=== PATIENT | female | born 1955 | race Caucasian/White ===

== ENCOUNTER 2018-03-25 10:34 | Inpatient (IN) ==
--- NOTE | 2018-03-25 10:40 | Emergency Department Note ---
Disposition Clinical Impression: UTI (urinary tract infection) Qualifiers: Urinary tract infection type: site unspecified Hematuria presence: without hematuria Qualified Code(s): N39.0 - Urinary tract infection, site not specified Hypotension Qualifiers: Hypotension type: unspecified hypotension type Qualified Code(s): I95.9 - Hypotension, unspecified Chest pain Qualifiers: Chest pain type: unspecified Qualified Code(s): R07.9 - Chest pain, unspecified Disposition: Admitted As Inpatient Condition: Good Time of Disposition: 17:24 Chest Pain HPI - General Chief Complaint: ED Chest Pain Stated Complaint: CP X1day Time Seen by Provider: 03/25/18 10:38 Source: patient Mode of arrival: ambulatory Limitations: no limitations Vital Signs Reviewed: Yes Nursing Notes Reviewed: Yes - History of Present Illness HPI Narrative: Patient is a 8-year-old female with past medical history of renal cell carcinoma , hypertension. She presents today due to chest discomfort. She states that this morning, she started having chest pain around 8 AM. Described as aching with radiation to her upper back. No radiation to arm or jaw. No associated nausea, sweating, vomiting, fevers. Unsure if this worsens with exertion. Associated with some shortness of breath but does worsen with exertion. Currently rated as 7 or 8 out of 10. She took baby aspirin 81 mg this morning. Denies receiving any other medication prior to arrival. She was [facility] this morning for follow-up appointment for renal cell carcinoma, she is having chest discomfort during that visit and was sent here for further evaluation. - Related Data Home Medications Medication Instructions Recorded Confirmed Aspirin 81 mg PO DAILY 07/23/16 03/25/18 Buspirone HCl [Buspar] 7.5 mg PO BID 07/23/16 03/25/18 Cetirizine HCl [Zyrtec] 10 mg PO DAILY 07/23/16 03/25/18 Docusate [Colace] 100 mg PO DAILY 07/23/16 03/25/18 Gabapentin [Neurontin] 600 mg PO TID 07/23/16 03/25/18 Metoprolol XL (24 HR) Succ [Toprol 25 mg PO DAILY 07/23/16 03/25/18 Xl] Nitroglycerin [Nitrostat] 0.4 mg SL Q5M PRN 07/23/16 03/25/18 Sertraline [Zoloft] 50 mg PO DAILY 07/23/16 03/25/18 Isosorbide MONOnitrate (24 HR) 60 mg PO BID 03/25/18 03/25/18 [Imdur] Losartan [Cozaar] 25 mg PO DAILY 03/25/18 03/25/18 Previous Rx's Medication Instructions Recorded Atorvastatin Calcium 80 mg PO DAILY #60 tablet 07/27/16 Clopidogrel [Plavix] 75 mg PO DAILY #60 tablet 07/27/16 metFORMIN [Glucophage] 500 mg PO BIDWM #60 tablet 07/27/16 Methocarbamol [Robaxin] 750 mg PO Q8HR PRN #21 tablet 06/05/17 Allergies Allergy/AdvReac Type Severity Reaction Status Date / Time citalopram [From Celexa] Allergy See Verified 03/25/18 09:24 Comments Penicillins Allergy Hives Verified 03/25/18 09:24 codeine AdvReac Nausea Verified 03/25/18 09:24 All systems ED: reviewed and negative except as stated. Constitutional: Denies: fever Cardiovascular: Reports: chest pain Respiratory: Reports: dyspnea Gastrointestinal: Denies: abdominal pain, nausea, vomiting, diarrhea Genitourinary: Denies: urgency, dysuria Integumentary: Denies: rash Neurological: Denies: headache, weakness, numbness, paresthesias Chest Pain PMH - Past Medical History Medical history: Reports: other Surgical history: Reports: cancer surgery, cholecystectomy, hysterectomy, orthopedic, other, other (Cervical spine surgery) Psychiatric history: Reports: no psych history - Social History Smoking Status: Never smoker Alcohol use: Reports: none Drug use: Reports: none Physical Exam - General Limitations: no limitations General appearance: alert, in no apparent distress - Head Head exam: atraumatic, normocephalic, normal inspection - Eye Eye exam: Present: normal appearance, PERRL, EOMI - ENT ENT exam: normal exam, normal oropharynx, mucous membranes moist - Neck Neck exam: Present: normal inspection, full ROM, trachea midline - Chest Chest inspection: Present: normal inspection, symmetric chest wall rise. Absent : tenderness, rash - Respiratory Respiratory exam: Present: normal lung sounds bilaterally - Cardiovascular Cardiovascular exam: Present: regular rate, normal rhythm, normal heart sounds - Abdominal Exam Abdominal exam: Present: soft, Non-Tender. Absent: tenderness, distention, guarding, rebound, rigidity - Extremities Exam Extremities exam: Present: normal inspection, full ROM, pedal edema (Chronic bilateral lower extremity venous stasis. Negative calf tenderness bilaterally.) . Absent: tenderness - Neurological Exam Neurological exam: Present: alert, oriented X3, CN II-XII intact. Absent: motor sensory deficit - Psychiatric Psychiatric exam: Present: normal affect, normal mood - Skin Skin exam: Present: warm, dry, intact, normal color Course Course Narrative: Chest X-Ray 03/25/18 10:43 IMPRESSION: 1. No active pulmonary disease. D/ / Marcio London MD / Marcio London MD Interpreting Provider: Marcio London MD Chest CTA 03/25/18 10:57 IMPRESSION: No acute vascular abnormality is identified. No aortic dissection or aneurysm. Mediastinal and axillary adenopathy. Multiple mediastinal nodes are partially calcified, indicating granulomatous disease. Please see discussion below. Scattered bilateral pulmonary nodules. Follow-up CT is recommended in 3-6 months. Mediastinal and axillary adenopathy may be followed at this time as well. Additional pulmonary management guidelines are inserted below for reference. -------- Fleischner Society guidelines for follow-up and management of incidentally detected pulmonary nodules: Multiple Solid Nodules: Nodule size equals 6-8 mm In a low-risk patient, CT at 3-6 months, then consider CT at 18-24 months. In a high-risk patient, CT at 3-6 months, then CT at 18-24 months. - Low risk patients include individuals with minimal or absent history of smoking and other known risk factors. - High risk patients include individuals with a history or smoking or known risk factors. Radiology 2017 http://pubs.rsna.org/doi/full/10.1148/radiol.[email or web address] D/ / Dennis Gan MD / Dennis Gan MD Interpreting Provider: Dennis Gan MD Vital Signs Temperature 97.5 F L 03/25/18 10:37 Pulse Rate 93 03/25/18 10:37 Respiratory Rate 18 03/25/18 10:37 Blood Pressure 78/51 03/25/18 10:37 O2 Sat by Pulse Oximetry 97 03/25/18 10:37 Temperature 97.5 F L 03/25/18 10:41 Pulse Rate 74 03/25/18 16:53 Respiratory Rate 20 03/25/18 16:53 Blood Pressure 122/59 03/25/18 16:53 O2 Sat by Pulse Oximetry 94 03/25/18 16:53 Oxygen Delivery Oxygen Delivery Nasal Cannula Chest Pain - [facility] Narrative Medical decision making narrative: Patient was hypertensive in the 70s on presentation. She currently is complaining of some lightheadedness but no other focal neurologic deficits. With history of chest pain, shortness of breath, hypertension and is concern for dissection versus ACS versus PE. We will obtain basic blood work, EKG, troponin, CT of the chest for further assessment. Also perform a quick bedside x-ray to assess for any acute processes. 15:05 chest x-ray negative for any acute cardio pulmonary process. Chest CTA shows mediastinal and axillary adenopathy but no other concerns for pneumonia. Patient continues to have increased oxygen demand, requiring 2 L nasal to keep oxygen saturation above 88%. Blood pressures have been improving after fluids gradually from systolic of 70 now to systolic of 100. Patient is still mentating well. No clear signs of any sepsis at this time. Patient just had a CT abdomen and pelvis at the end of January that was negative for any acute intra- abdominal process. No abdominal pain. No concern for any intra-abdominal process at this time. No concern for any skin wounds or cellulitis. I discussed the case with hospitalist, they were not comfortable with blood pressures being soft and not having clear source for hypotension. Requested urinalysis to be back before they admitted the patient. We preemptively started vancomycin and cefepime for any source control. Urinalysis obtained at this time and pending. 17:00 UA back and concerning for UTI, possible source of hypotension. Antibiotics already started. Blood pressure was taken manually and was 100/70. Spoke with Dr. Marquis again. He has accepted the patient at this time for further care. - Medical Records Medical records reviewed: Yes I reviewed the patient's medical records. - Lab Data Lab results reviewed: Yes I reviewed the patient's lab results. Result diagrams: 03/25/18 11:03 03/25/18 11:03 Lab Results 03/25/18 03/25/18 03/25/18 Range/Units 11:03 11:03 11:03 WBC 12.0 H (4.3-11.1) K/mcL RBC 5.19 H (3.82-4.97) M/mcL Hgb 15.6 H (11.5-15.4) g/dL Hct 46.0 H (35.3-44.9) % MCV 88.6 (83.0-100.0) fL MCH 30.1 (28.0-33.3) pg MCHC 33.9 (31.6-35.5) g/dL RDW 13.5 (11.5-14.5) % Plt Count 252 (140-400) K/mcL MPV 11.2 (9.4-12.4) fL Immature Gran % 0.4 (0-4) % Seg Neutrophils % 61.4 % Lymphocytes % 28.6 % Monocytes % 5.6 % Eosinophils % 3.6 % Basophils % 0.4 % Neutrophils # 7.4 (1.6-8.9) K/mcL Lymphocytes # 3.4 (0.6-4.6) K/mcL Monocytes # 0.7 (0.0-1.3) K/mcL Eosinophils # 0.4 (0.0-0.6) K/mcL Basophils # 0.1 (0.0-0.2) K/mcL PT 10.8 (9.4-12.1) Seconds INR 1.0 APTT 30.6 (26.0-36.0) Seconds Sodium 133 L (136-145) mEq/L Potassium 4.7 (3.5-5.1) mEq/L Chloride 100 (98-107) mEq/L Carbon Dioxide 18 L (23-29) mEq/L BUN 25 H (8-23) mg/dL Creatinine 1.13 (0.60-1.20) mg/dL Est GFR ( Amer) 60 (> 60) Est GFR (Non-Af Amer) 49 L (> 60) BUN/Creatinine Ratio 22 (6-26) Glucose 360 H (70-105) mg/dL Calculated Osmolality 295 (280-300) Lactic Acid (0.5-2.2) mmol/L Calcium 9.2 (8.6-10.3) mg/dL Troponin I < 0.03 (< 0.04) ng/mL Urine Color (Yellow) Urine Clarity (Clear) Urine pH (5.0-8.0) pH Units Ur Specific [place] (1.010-1.025) Urine Protein (Neg-Trace) mg/dL Urine Glucose (UA) (Normal) mg/dL Urine Ketones (Negative) mg/dL Urine Blood (Negative) Urine Nitrite (Negative) Urine Bilirubin (Negative) Urine Urobilinogen (Normal) mg/dL Ur Leukocyte Esterase (Negative) Urine Microscopic RBC (0-3) per hpf Urine Microscopic WBC (0-3) per hpf Ur Squamous Epith Cells (None-Few) per lpf Urine Bacteria (None-Few) per hpf Urine Yeast (None Seen) per hpf 03/25/18 03/25/18 03/25/18 Range/Units 11:06 15:14 15:25 WBC (4.3-11.1) K/mcL RBC (3.82-4.97) M/mcL Hgb (11.5-15.4) g/dL Hct (35.3-44.9) % MCV (83.0-100.0) fL MCH (28.0-33.3) pg MCHC (31.6-35.5) g/dL RDW (11.5-14.5) % Plt Count (140-400) K/mcL MPV (9.4-12.4) fL Immature Gran % (0-4) % Seg Neutrophils % % Lymphocytes % % Monocytes % % Eosinophils % % Basophils % % Neutrophils # (1.6-8.9) K/mcL Lymphocytes # (0.6-4.6) K/mcL Monocytes # (0.0-1.3) K/mcL Eosinophils # (0.0-0.6) K/mcL Basophils # (0.0-0.2) K/mcL PT (9.4-12.1) Seconds INR APTT (26.0-36.0) Seconds Sodium (136-145) mEq/L Potassium (3.5-5.1) mEq/L Chloride (98-107) mEq/L Carbon Dioxide (23-29) mEq/L BUN (8-23) mg/dL Creatinine (0.60-1.20) mg/dL Est GFR ( Amer) (> 60) Est GFR (Non-Af Amer) (> 60) BUN/Creatinine Ratio (6-26) Glucose (70-105) mg/dL Calculated Osmolality (280-300) Lactic Acid 4.3 H* 1.7 (0.5-2.2) mmol/L Calcium (8.6-10.3) mg/dL Troponin I (< 0.04) ng/mL Urine Color Yellow (Yellow) Urine Clarity Turbid A (Clear) Urine pH 5.5 (5.0-8.0) pH Units Ur Specific [place] > 1.030 H (1.010-1.025) Urine Protein Trace (Neg-Trace) mg/dL Urine Glucose (UA) >=1000 H (Normal) mg/dL Urine Ketones Negative (Negative) mg/dL Urine Blood Moderate H (Negative) Urine Nitrite Negative (Negative) Urine Bilirubin Negative (Negative) Urine Urobilinogen Normal (Normal) mg/dL Ur Leukocyte Esterase Large H (Negative) Urine Microscopic RBC 0-3 (0-3) per hpf Urine Microscopic WBC TNTC H (0-3) per hpf Ur Squamous Epith Cells Few (None-Few) per lpf Urine Bacteria Few (None-Few) per hpf Urine Yeast Many H (None Seen) per hpf - Radiology Data Radiology results reviewed: Yes I reviewed the patient's radiology results. - EKG Data EKG attestation: Yes I reviewed and interpreted this EKG. EKG results narrative: 03/25/2018 at 10:57. Normal sinus rhythm. Rate 91. OK 143. QRS 60. QTC 380. Mild left axis deviation. No acute ST elevation or depression. T-wave inversion in lead 3. S.B.A.R. - S.B.A.R. Situation: Demographics, MOA Background: Presenting Complaint, Relevant PMH, Meds, & Allergies Assessment: Vital Signs, Course and respsone to treatment, Exam Concerns, Patient/Family Expectation, Pertinant Lab Results Recommendation: Barrier(s) to disposition, Recommendation based on pending studies, treatments, or consults S.B.A.R. Report Given to: Dr. Marquis
--- NOTE | 2018-03-25 10:51 | Emergency Department Note ---
Disposition Clinical Impression: UTI (urinary tract infection), Hypotension, Chest pain Disposition: Admitted As Inpatient Condition: Good General Adult HPI - General Chief complaint: ED Chest Pain Stated complaint: CP X1day Time Seen by Provider: 03/25/18 10:38 - Related Data Home Medications Medication Instructions Recorded Confirmed Aspirin 81 mg PO DAILY 07/23/16 03/25/18 Buspirone HCl [Buspar] 7.5 mg PO BID 07/23/16 03/25/18 Cetirizine HCl [Zyrtec] 10 mg PO DAILY 07/23/16 03/25/18 Docusate [Colace] 100 mg PO DAILY 07/23/16 03/25/18 Gabapentin [Neurontin] 600 mg PO TID 07/23/16 03/25/18 Metoprolol XL (24 HR) Succ [Toprol 25 mg PO DAILY 07/23/16 03/25/18 Xl] Nitroglycerin [Nitrostat] 0.4 mg SL Q5M PRN 07/23/16 03/25/18 Sertraline [Zoloft] 50 mg PO DAILY 07/23/16 03/25/18 Isosorbide MONOnitrate (24 HR) 60 mg PO BID 03/25/18 03/25/18 [Imdur] Losartan [Cozaar] 25 mg PO DAILY 03/25/18 03/25/18 Previous Rx's Medication Instructions Recorded Atorvastatin Calcium 80 mg PO DAILY #60 tablet 07/27/16 Clopidogrel [Plavix] 75 mg PO DAILY #60 tablet 07/27/16 metFORMIN [Glucophage] 500 mg PO BIDWM #60 tablet 07/27/16 Methocarbamol [Robaxin] 750 mg PO Q8HR PRN #21 tablet 06/05/17 Allergies Allergy/AdvReac Type Severity Reaction Status Date / Time citalopram [From Celexa] Allergy See Verified 03/25/18 09:24 Comments Penicillins Allergy Hives Verified 03/25/18 09:24 codeine AdvReac Nausea Verified 03/25/18 09:24 Past Medical History - Past Medical History Medical history: Reports: other Surgical history: Reports: cancer surgery, cholecystectomy, hysterectomy, orthopedic, other, other (Cervical spine surgery) Psychiatric history: Reports: no psych history - Social History Smoking Status: Never smoker Smokeless Tobacco Status: No Alcohol use: Reports: none Drug use: Reports: none Course Vital Signs Temperature 97.5 F L 03/25/18 10:37 Pulse Rate 93 03/25/18 10:37 Respiratory Rate 18 03/25/18 10:37 Blood Pressure 78/51 03/25/18 10:37 O2 Sat by Pulse Oximetry 97 03/25/18 10:37 Temperature 97.5 F L 03/25/18 10:41 Pulse Rate 74 03/25/18 16:53 Respiratory Rate 20 03/25/18 16:53 Blood Pressure 122/59 03/25/18 16:53 O2 Sat by Pulse Oximetry 94 03/25/18 16:53 Oxygen Delivery Oxygen Delivery Nasal Cannula Medical Decision Making - Lab Data Result diagrams: 03/25/18 11:03 03/25/18 11:03 Lab Results 03/25/18 03/25/18 03/25/18 Range/Units 11:03 11:03 11:03 WBC 12.0 H (4.3-11.1) K/mcL RBC 5.19 H (3.82-4.97) M/mcL Hgb 15.6 H (11.5-15.4) g/dL Hct 46.0 H (35.3-44.9) % MCV 88.6 (83.0-100.0) fL MCH 30.1 (28.0-33.3) pg MCHC 33.9 (31.6-35.5) g/dL RDW 13.5 (11.5-14.5) % Plt Count 252 (140-400) K/mcL MPV 11.2 (9.4-12.4) fL Immature Gran % 0.4 (0-4) % Seg Neutrophils % 61.4 % Lymphocytes % 28.6 % Monocytes % 5.6 % Eosinophils % 3.6 % Basophils % 0.4 % Neutrophils # 7.4 (1.6-8.9) K/mcL Lymphocytes # 3.4 (0.6-4.6) K/mcL Monocytes # 0.7 (0.0-1.3) K/mcL Eosinophils # 0.4 (0.0-0.6) K/mcL Basophils # 0.1 (0.0-0.2) K/mcL PT 10.8 (9.4-12.1) Seconds INR 1.0 APTT 30.6 (26.0-36.0) Seconds Sodium 133 L (136-145) mEq/L Potassium 4.7 (3.5-5.1) mEq/L Chloride 100 (98-107) mEq/L Carbon Dioxide 18 L (23-29) mEq/L BUN 25 H (8-23) mg/dL Creatinine 1.13 (0.60-1.20) mg/dL Est GFR ( Amer) 60 (> 60) Est GFR (Non-Af Amer) 49 L (> 60) BUN/Creatinine Ratio 22 (6-26) Glucose 360 H (70-105) mg/dL Calculated Osmolality 295 (280-300) Lactic Acid (0.5-2.2) mmol/L Calcium 9.2 (8.6-10.3) mg/dL Troponin I < 0.03 (< 0.04) ng/mL Urine Color (Yellow) Urine Clarity (Clear) Urine pH (5.0-8.0) pH Units Ur Specific [place] (1.010-1.025) Urine Protein (Neg-Trace) mg/dL Urine Glucose (UA) (Normal) mg/dL Urine Ketones (Negative) mg/dL Urine Blood (Negative) Urine Nitrite (Negative) Urine Bilirubin (Negative) Urine Urobilinogen (Normal) mg/dL Ur Leukocyte Esterase (Negative) Urine Microscopic RBC (0-3) per hpf Urine Microscopic WBC (0-3) per hpf Ur Squamous Epith Cells (None-Few) per lpf Urine Bacteria (None-Few) per hpf Urine Yeast (None Seen) per hpf 03/25/18 03/25/18 03/25/18 Range/Units 11:06 15:14 15:25 WBC (4.3-11.1) K/mcL RBC (3.82-4.97) M/mcL Hgb (11.5-15.4) g/dL Hct (35.3-44.9) % MCV (83.0-100.0) fL MCH (28.0-33.3) pg MCHC (31.6-35.5) g/dL RDW (11.5-14.5) % Plt Count (140-400) K/mcL MPV (9.4-12.4) fL Immature Gran % (0-4) % Seg Neutrophils % % Lymphocytes % % Monocytes % % Eosinophils % % Basophils % % Neutrophils # (1.6-8.9) K/mcL Lymphocytes # (0.6-4.6) K/mcL Monocytes # (0.0-1.3) K/mcL Eosinophils # (0.0-0.6) K/mcL Basophils # (0.0-0.2) K/mcL PT (9.4-12.1) Seconds INR APTT (26.0-36.0) Seconds Sodium (136-145) mEq/L Potassium (3.5-5.1) mEq/L Chloride (98-107) mEq/L Carbon Dioxide (23-29) mEq/L BUN (8-23) mg/dL Creatinine (0.60-1.20) mg/dL Est GFR ( Amer) (> 60) Est GFR (Non-Af Amer) (> 60) BUN/Creatinine Ratio (6-26) Glucose (70-105) mg/dL Calculated Osmolality (280-300) Lactic Acid 4.3 H* 1.7 (0.5-2.2) mmol/L Calcium (8.6-10.3) mg/dL Troponin I (< 0.04) ng/mL Urine Color Yellow (Yellow) Urine Clarity Turbid A (Clear) Urine pH 5.5 (5.0-8.0) pH Units Ur Specific [place] > 1.030 H (1.010-1.025) Urine Protein Trace (Neg-Trace) mg/dL Urine Glucose (UA) >=1000 H (Normal) mg/dL Urine Ketones Negative (Negative) mg/dL Urine Blood Moderate H (Negative) Urine Nitrite Negative (Negative) Urine Bilirubin Negative (Negative) Urine Urobilinogen Normal (Normal) mg/dL Ur Leukocyte Esterase Large H (Negative) Urine Microscopic RBC 0-3 (0-3) per hpf Urine Microscopic WBC TNTC H (0-3) per hpf Ur Squamous Epith Cells Few (None-Few) per lpf Urine Bacteria Few (None-Few) per hpf Urine Yeast Many H (None Seen) per hpf Critical Care Time Critical Care Time: Yes Total Critical Care Time: 30 Attestation: 30 minutes of critical care time was spent with this very ill pt with hypotension, fluid boluses, testing including elevated lactate level and to numerous to count white blood cells in the urine. Attestation Statement - Attestation Attestation: I examined this patient and my medical decision-making was reviewed with the DENTAL NURSE/PA/Advanced Practice Nurse/Resident Physician. I agree with the documented findings, disposition and treatment plan as described except to the extent set forth below. Patient has a history of remote renal cell carcinoma 2003 without evidence of recurrence and does follow with oncology and presents today with lightheadedness and chest discomfort and current blood pressure is systolic 78 and this will be rechecked. The patient is bright and alert and in no distress , color is good, EKG will be done as well as chest x-ray and blood work and IV fluids. Results pending. [id number]
[2018-03-25] MEDS ORDERED: 0.9 % Sodium Chloride 1,000 ML IVC ONE ×2 (10:57→14:59)
[2018-03-25] MEDS ORDERED: Isovue-370 500 ML INFUS..BTL IV ONE (10:57)
[2018-03-25 11:37] LABS: Basophils # 0.1 K/mcL (0.0-0.2); Basophils % 0.4 %; Eosinophils # 0.4 K/mcL (0.0-0.6); Eosinophils % 3.6 %; Hemoglobin 15.6 g/dL (11.5-15.4); Immature Granulocytes % 0.4 % (0-4); Lymphocytes # 3.4 K/mcL (0.6-4.6); Lymphocytes % 28.6 %; Mean Corpuscular HGB Conc 33.9 g/dL (31.6-35.5); Mean Corpuscular Hemoglobin 30.1 pg (28.0-33.3); Mean Corpuscular Volume 88.6 fL (83.0-100.0); Mean Platelet Volume 11.2 fL (9.4-12.4); Monocytes # 0.7 K/mcL (0.0-1.3); Monocytes % 5.6 %; Neutrophils # 7.4 K/mcL (1.6-8.9); Platelet Count 252 K/mcL (140-400); Red Blood Count 5.19 M/mcL (3.82-4.97); Red Cell Distribution Width 13.5 % (11.5-14.5); Segmented Neutrophils % 61.4 %
[2018-03-25 11:47] LABS: Prothrombin Time 10.8 Seconds (9.4-12.1); Troponin I < 0.03 ng/mL (< 0.04)
[2018-03-25 11:50] LABS: Activated Partial Thrombo Time 30.6 Seconds (26.0-36.0)
[2018-03-25] MEDS: 0.9 % Sodium Chloride 1,000 ML IVC SCH ×2 (12:15→18:45)
[2018-03-25 12:19] LABS: BUN/Creatinine Ratio 22 (6-26); Blood Urea Nitrogen 25 mg/dL (8-23); Calcium 9.2 mg/dL (8.6-10.3); Carbon Dioxide 18 mEq/L (23-29); Chloride 100 mEq/L (98-107); Glucose 360 mg/dL (70-105); Osmolality,Calculated 295 (280-300); Potassium 4.7 mEq/L (3.5-5.1); Sodium 133 mEq/L (136-145); eGFR For Non-African Americans 49 (> 60)
[2018-03-25] MEDS ORDERED: Cefepime HCl 1,000 MG in 0.9 % Sodium Chloride Mini Bag 100 ML IVPB ONE (14:54)
[2018-03-25 15:44] LABS: Bilirubin,Urine Negative (Negative); Blood,Urine Moderate (Negative); Clarity,Urine Turbid (Clear); Color,Urine Yellow (Yellow); Glucose,Urine (UA) >=1000 mg/dL (Normal); Ketones,Urine Negative (Negative); Leukocyte Esterase,Urine Large (Negative); Nitrite,Urine Negative (Negative); PH,Urine 5.5 pH Units (5.0-8.0); Protein,Urine Trace mg/dL (Neg-Trace); Specific Gravity,Urine > 1.030 (1.010-1.025); Urobilinogen,Urine Normal (Normal)
[2018-03-25 16:26] LABS: Squamous Epithelial Cell,Urine Few per lpf (None-Few)
[2018-03-25 16:27] LABS: WBC,Urine TNTC per hpf (0-3); Yeast,Urine Many per hpf (None Seen)
[2018-03-25 16:28] LABS: Bacteria,Urine Few per hpf (None-Few); RBC,Urine 0-3 per hpf (0-3)
[2018-03-25] MEDS ORDERED: Naloxone 0.4 MG/ML INJ IVP PRN (17:34)
[2018-03-25] MEDS ORDERED: *HR* Dextrose 50 % in Water (Syg) 50 ML SYRINGE IVP PRN (17:34)
[2018-03-25] MEDS ORDERED: D5% in Water 1,000 ML IVC PRN (17:34)
[2018-03-25] MEDS ORDERED: Dextrose Gel 15 GM/37.5 ML TUBE PO PRN ×2 (17:34)
[2018-03-25] MEDS ORDERED: Nitroglycerin 0.4 MG TAB.SUBL SL PRN (17:43)
--- NOTE | 2018-03-25 17:51 | Internal Med History&Physical ---
Date of Encounter: 03/25/18 Time of Encounter: 17:00 Internal Medicine - H&P: HPI Chief complaint: chest pain, weakness, urinary frequency History of present illness: Ms. Senior is a 62 year old female with past medical history of RCC status post resection, diabetes, CAD, hypertension, presented to the ED with vague history of chest discomfort for a few days. Couldn't really describe the nature but "funny sensation", non-radiating, no aggravating/relieving factors. She has felt weak for the last few days but denies fever/chills, N/V, or abdominal pain. Upon further questioning, she did endorse urinary frequency although did not have any dysuria. Associated with R flank discomfort. Denies any joint pain or rash. In the ED, she was afebrile but hypotensive at 78/51. Improved to 122/59 after fluid boluses. Initial labs revealed leukocytosis of 12, lactic acid of 4.3, and creatinine of 1.13 (baseline 0.8). Urinalysis was done and showed large amount of leukocyte esterase. Chest CTA was unremarkable except for mediastinal and axillary adenopathy. She was given Vanco and cefepime in the ER and admitted for further management Past Med Surg Social Fam HX - Past Medical History Attestation: Yes The following information was validated with the patient. Medical history: other Additional medical history: Renal Cell Carcinoma. Kidney Cancer-2003 Psychiatric history: no psych history - Past Surgical History Surgical History: cancer surgery, cholecystectomy, hysterectomy, orthopedic, other, other (Cervical spine surgery) Additional surgical history: Neck Surgery - Social History Smoking Status: Never smoker Smokeless Tobacco Status: No Alcohol use: none Drug use: none - Family History Mother Living Status: Hx Family Cancer: Yes (colon) Internal Medicine - H&P: Meds Aspirin 81 mg PO DAILY 07/23/16 [History] Buspirone HCl [Buspar] 7.5 mg PO BID 07/23/16 [History] Cetirizine HCl [Zyrtec] 10 mg PO DAILY 07/23/16 [History] Docusate [Colace] 100 mg PO DAILY 07/23/16 [History] Gabapentin [Neurontin] 600 mg PO TID 07/23/16 [History] Metoprolol XL (24 HR) Succ [Toprol Xl] 25 mg PO DAILY 07/23/16 [History] Nitroglycerin [Nitrostat] 0.4 mg SL Q5M PRN 07/23/16 [History] Sertraline [Zoloft] 50 mg PO DAILY 07/23/16 [History] Atorvastatin Calcium 80 mg PO DAILY #60 tablet 07/27/16 [Rx] Clopidogrel [Plavix] 75 mg PO DAILY #60 tablet 07/27/16 [Rx] metFORMIN [Glucophage] 500 mg PO BIDWM #60 tablet 07/27/16 [Rx] Methocarbamol [Robaxin] 750 mg PO Q8HR PRN #21 tablet 06/05/17 [Rx] Isosorbide MONOnitrate (24 HR) [Imdur] 60 mg PO BID 03/25/18 [History] Losartan [Cozaar] 25 mg PO DAILY 03/25/18 [History] 3 Allergy/AdvReac Type Severity Reaction Status Date / Time citalopram [From Celexa] Allergy See Verified 03/25/18 09:24 Comments Penicillins Allergy Hives Verified 03/25/18 09:24 codeine AdvReac Nausea Verified 03/25/18 09:24 All Systems PM: A 10-system review of systems was performed and is negative for pertinent findings except as documented above in the HPI. - Constitutional Vitals: Temp Pulse Resp BP Pulse Ox 97.5 F L 74 20 122/59 94 03/25/18 10:41 03/25/18 16:53 03/25/18 16:53 03/25/18 16:53 03/25/18 16:53 Exam: General: Alert and oriented, not in distress HEENT:EOM, pupils equal, round, and reactive. Cardiovascular:Normal S1 & S2, no murmurs or gallops. No JVD. Pulse regular. Lungs:Normal breath sounds, no wheezes or crackles. Abdomen:Soft, non-tender, no rigidity. Mild R CVA tenderness Extremities:No deformity, no edema or tenderness, no joint swelling. Neurological:Normal cognition and motor skills. Skin:Normal color, no rash, no lesions. Pulses:Carotid and radial pulses normal +2. Rest of the physical exam is non-contributory Internal Med - H&P Results - Labs CBC & Chem 7: 03/25/18 11:03 07/27/18 11:03 - Assessment and plan (1) Severe sepsis Current Visit: Yes Status: Acute Assessment and plan: Secondary to probably pyelonephritis Urinalysis is positive for leukocyte esterase and patient has right-sided CVA tenderness. Leukocytosis of 12 and lactic acid of 4.3 which normalized with IV fluid. Also has PRINCE given IV VAnc/cefepime in the ED, will continue Rocephin Urine Culture pending, ordered blood cultures x [address] scan as it will not change her management and patient is also improving on current management. monitor BP closely (2) Pyelonephritis Current Visit: Yes Status: Acute Assessment and plan: As above, urine culture pending. Switch antibiotics to Rocephin. (3) Diabetes mellitus Current Visit: No Status: Chronic Assessment and plan: Blood glucose 360 on presentation, on metformin at home We will cover with high-dose sliding scale. Qualifiers: Diabetes mellitus type: type 2 Diabetes mellitus detention insulin use: with detention use Diabetes mellitus complication status: with circulatory complication Diabetes mellitus complication detail: with other circulatory complications Qualified Code(s): E11.59 - Type 2 diabetes mellitus with other circulatory complications; Z79.4 - buttermaker continuous churn (current) use of insulin (4) CAD (coronary artery disease) Current Visit: No Status: Chronic Assessment and plan: Episodes of chest pain prior to presentation, troponin is negative. Could be due to poor perfusion secondary to hypotension with sepsis. trend troponin holf off on bb, ARB, imdur for borderline BP Qualifiers: Coronary Disease-Associated Artery/Lesion type: [place] artery [place] vs. transplanted heart: [place] heart Associated angina: without angina Qualified Code(s): I25.10 - Atherosclerotic heart disease of [place] coronary artery without angina pectoris (5) Chest pain Current Visit: Yes Status: Acute Assessment and plan: As above, trend troponin Qualifiers: Chest pain type: unspecified Qualified Code(s): R07.9 - Chest pain, unspecified (6) DVT prophylaxis Current Visit: Yes Status: Acute Assessment and plan: Subcutaneous heparin. - Time Spent With Patient Total time spent is greater than 50% in coordination of care (as documented) at patient's floor/unit and/or counseling patient:
[2018-03-25] MEDS: Gabapentin 300 MG CAPSULE PO SCH (19:25)
[2018-03-26] MEDS: Insulin LISPRO 300 UNITS/3 ML VIAL SQ SCH ×4 (03:01→16:47)
[2018-03-26] MEDS: *HR* Heparin 5,000 UNIT/ML VIAL SQ SCH ×3 (04:08→13:58)
[2018-03-26] MEDS: 0.9 % Sodium Chloride 1,000 ML IVC SCH ×2 (04:09→04:14)
[2018-03-26] MEDS: cefTRIAXone 2,000 MG in Water for inj. (sterile) 20 ML 20 ML IVP SCH (04:10)
[2018-03-26 04:51] LABS: Basophils % 0.3 %; Eosinophils # 0.5 K/mcL (0.0-0.6); Eosinophils % 5.1 %; Hematocrit 43.4 % (35.3-44.9); Hemoglobin 14.7 g/dL (11.5-15.4); Immature Granulocytes % 0.4 % (0-4); Lymphocytes # 2.6 K/mcL (0.6-4.6); Lymphocytes % 27.8 %; Mean Corpuscular HGB Conc 33.9 g/dL (31.6-35.5); Mean Corpuscular Hemoglobin 30.1 pg (28.0-33.3); Mean Corpuscular Volume 88.8 fL (83.0-100.0); Mean Platelet Volume 12.1 fL (9.4-12.4); Monocytes # 0.5 K/mcL (0.0-1.3); Monocytes % 5.7 %; Neutrophils # 5.6 K/mcL (1.6-8.9); Platelet Count 165 K/mcL (140-400); Red Blood Count 4.89 M/mcL (3.82-4.97); Red Cell Distribution Width 13.6 % (11.5-14.5); Segmented Neutrophils % 60.7 %
[2018-03-26 05:07] LABS: BUN/Creatinine Ratio 26 (6-26); Blood Urea Nitrogen 17 mg/dL (8-23); Calcium 8.5 mg/dL (8.6-10.3); Carbon Dioxide 21 mEq/L (23-29); Chloride 106 mEq/L (98-107); Glucose 324 mg/dL (70-105); Magnesium 1.3 mg/dL (1.6-2.6); Osmolality,Calculated 298 (280-300); Sodium 137 mEq/L (136-145); eGFR For Non-African Americans > 60 (> 60)
[2018-03-26] MEDS: Gabapentin 300 MG CAPSULE PO SCH ×3 (08:58→19:48)
[2018-03-26] MEDS: Aspirin 81 MG TAB.CHEW PO SCH (08:58)
[2018-03-26] MEDS: Loratadine 10 MG TABLET PO SCH (08:59)
[2018-03-26] MEDS: Insulin DETEMIR 100 UNIT/ML X5UNITS SQ SCH ×2 (08:59→19:48)
--- NOTE | 2018-03-26 16:28 | Internal Med Progress Note ---
Date of Encounter: 03/26/18 Time of Encounter: 08:45 - Assessment and plan (1) Chest pain Current Visit: Yes Status: Acute Assessment and plan: Resolved. Unclear etiology. EKG and chest x-ray unremarkable. Serial troponins are negative. Continue aspirin, Plavix, statin. Continue telemetry monitoring. Check echocardiogram. CT angiogram of chest showed no PE, aortic dissection, showed mediastinal and axillary adenopathy, bilateral pulmonary nodules. Patient needs outpatient follow-up. Patient was noted to have hypotension and lactic acidosis at admission, that resolved with IV hydration. Home antihypertensives are currently on hold. Qualifiers: Chest pain type: unspecified Qualified Code(s): R07.9 - Chest pain, unspecified (2) Pyelonephritis Current Visit: Yes Status: Suspected Assessment and plan: Urinalysis shows moderate blood, large leukocyte esterase, too numerous to count WBC, many yeast. Follow-up blood and urine cultures. Continue IV Rocephin. (3) Diabetes mellitus Current Visit: Yes Status: Chronic Assessment and plan: Blood sugars noted to be elevated. Continue sliding scale insulin, start basal insulin. Accu-Chek blood glucose monitoring. Diabetic diet. Check hemoglobin A1c. 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 transplanted heart: [place] heart Associated angina: without angina Qualified Code(s): I25.10 - Atherosclerotic heart disease of [place] coronary artery without angina pectoris (5) DVT prophylaxis Current Visit: Yes Status: Acute (6) Renal cell carcinoma Current Visit: Yes Status: Chronic Assessment and plan: Follows with oncology as outpatient. has right renal cell carcinoma status post partial nephrectomy in 2003. Qualifiers: Laterality: unspecified laterality Qualified Code(s): C64.9 - Malignant neoplasm of unspecified kidney, except renal pelvis (7) Essential hypertension Current Visit: Yes Status: Chronic Assessment and plan: Blood pressure improving. Continue to hold beta niru, ARB, nitrate. (8) CVA (cerebral vascular accident) Current Visit: Yes Status: Chronic Assessment and plan: Reports intermittent vertigo and issues with balance due to previous stroke. Physical and occupational therapy evaluation. Continue aspirin and statin. 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 Improving right flank pain and chest pain. Blood pressure improved. No fever, chills, shortness of breath, nausea. Denies burning micturition, hematuria and pyuria. - Constitutional Vitals: Temp Pulse Resp BP Pulse Ox 98.4 F 82 20 124/89 100 03/26/18 16:00 03/26/18 16:00 03/26/18 16:00 03/26/18 16:00 03/26/18 16:00 General appearance: Present: A&O X 3, morbidly obese, answers questions appropriately - Respiratory Respiratory exam: Present: CTAB. Absent: accessory muscle use, rales, rhonchi, wheezes - Cardiovascular Cardiovascular exam: Present: RRR, +S1, +S2. Absent: diastolic murmur, gallop, rubs, systolic murmur - GI/Abdominal GI/Abdominal exam: Present: normal bowel sounds, soft (obese), no peritoneal signs. Absent: distended, tenderness - Extremities Exam Extremities exam: Present: warm, radial pulses palpable and symmetrical. Absent : calf tenderness, cyanotic, pedal edema Additional comments: B/L legs with chronic healed wounds - Back Exam Back exam: Present: CVA tenderness (R) - Neurological Exam Neurological exam: Present: CN II-XII intact, oriented X3, no focal deficits. Absent: pronater drift, facial droop, speech deficit Internal Medicine: Result - Labs CBC & Chem 7: 03/26/18 04:02 03/26/18 04:02 Labs: Short CBC 03/26/18 Range/Units 04:02 WBC 9.3 (4.3-11.1) K/mcL Hgb 14.7 (11.5-15.4) g/dL Hct 43.4 (35.3-44.9) % Plt Count 165 (140-400) K/mcL Neutrophils # 5.6 (1.6-8.9) K/mcL BMP 03/26/18 04:02 Sodium 137 Potassium 5.0 Chloride 106 Carbon Dioxide 21 L BUN 17 Creatinine 0.65 Glucose 324 H Calcium 8.5 L Cardiac Enzymes 03/25/18 Range/Units 18:58 Troponin I < 0.03 (< 0.04) ng/mL - ABG Interpretation ABG results: PT/INR, D-dimer PT 10.8 Seconds (9.4-12.1) 03/25/18 11:03 Consult Discharge Plan - Plan Referrals: Calli Chapa, CATH LAB RADIOLOGICAL TECHNOLOGIST [Primary Care Provider] -
[2018-03-26] MEDS: Methocarbamol 750 MG TABLET PO PRN (19:48)
--- NOTE | 2018-03-26 21:04 | Electrocardiograph Report ---
[place] DNP [employer] Test Date: 2018-03-25 Pat Name: Shamika Senior Department: 103 Room: 2N06 Gender: F Supervisor [facility]: : 1955 Requested By: Dano Barrett Order Number: [id number] Reading MD: Hector Bagley Measurements Intervals [place] Rate: 91 P: 2 [place]: 143 QRS: -6 QRSD: 68 T: 12 QT: 332 QTc: 380 Interpretive Statements SINUS RHYTHM Electronically Signed On 03-26-2018 21:02:41 EDT by Hector Bagley
[2018-03-27] MEDS: Insulin LISPRO 300 UNITS/3 ML VIAL SQ SCH ×7 (01:42→21:24)
[2018-03-27] MEDS: *HR* Heparin 5,000 UNIT/ML VIAL SQ SCH ×3 (01:48→12:39)
[2018-03-27 03:10] LABS: Basophils % 0.3 %; Eosinophils # 0.4 K/mcL (0.0-0.6); Hematocrit 40.9 % (35.3-44.9); Immature Granulocytes % 0.3 % (0-4); Lymphocytes # 2.6 K/mcL (0.6-4.6); Lymphocytes % 39.2 %; Mean Corpuscular HGB Conc 34.2 g/dL (31.6-35.5); Mean Corpuscular Hemoglobin 30.2 pg (28.0-33.3); Mean Corpuscular Volume 88.3 fL (83.0-100.0); Mean Platelet Volume 11.1 fL (9.4-12.4); Monocytes # 0.5 K/mcL (0.0-1.3); Neutrophils # 3.1 K/mcL (1.6-8.9); Platelet Count 175 K/mcL (140-400); Red Blood Count 4.63 M/mcL (3.82-4.97); Red Cell Distribution Width 13.3 % (11.5-14.5); Segmented Neutrophils % 47.2 %
[2018-03-27 03:33] LABS: BUN/Creatinine Ratio 19 (6-26); Blood Urea Nitrogen 16 mg/dL (8-23); Carbon Dioxide 24 mEq/L (23-29); Chloride 106 mEq/L (98-107); Glucose 313 mg/dL (70-105); Magnesium 1.5 mg/dL (1.6-2.6); Osmolality,Calculated 293 (280-300); Potassium 4.3 mEq/L (3.5-5.1); Sodium 135 mEq/L (136-145); eGFR For Non-African Americans > 60 (> 60)
[2018-03-27] MEDS: cefTRIAXone 2,000 MG in Water for inj. (sterile) 20 ML 20 ML IVP SCH (03:55)
[2018-03-27 06:41] LABS: Estimated Average Glucose 364 mg/dl; Hemoglobin A1C 14.3 %
[2018-03-27] MEDS: Loratadine 10 MG TABLET PO SCH (07:49)
[2018-03-27] MEDS: Gabapentin 300 MG CAPSULE PO SCH ×3 (07:49→21:05)
[2018-03-27] MEDS: Aspirin 81 MG TAB.CHEW PO SCH (07:49)
[2018-03-27] MEDS: Insulin DETEMIR 100 UNIT/ML X5UNITS SQ SCH ×4 (07:51→21:06)
[2018-03-27] MEDS: Methocarbamol 750 MG TABLET PO PRN ×2 (08:06→21:08)
[2018-03-27] MEDS: Metoprolol XL (24 HR) Succ 25 MG TAB.ER.24H PO SCH (09:09)
--- NOTE | 2018-03-27 15:39 | Internal Med Progress Note ---
Date of Encounter: 03/27/18 Time of Encounter: 15:36 - Assessment and plan (1) Chest pain Current Visit: Yes Status: Acute Assessment and plan: Resolved. Unclear etiology. EKG and chest x-ray unremarkable. Serial troponins are negative. Continue aspirin, Plavix, statin. Continue telemetry monitoring. Echocardiogram shows preserved EF, moderate LV diastolic dysfunction, mild MR/TR/WI; CT angiogram of chest showed no PE, aortic dissection, showed mediastinal and axillary adenopathy, bilateral pulmonary nodules. Patient needs outpatient follow-up. Patient was noted to have hypotension and lactic acidosis at admission, that resolved with IV hydration. Home antihypertensives will be resumed. Qualifiers: Chest pain type: unspecified Qualified Code(s): R07.9 - Chest pain, unspecified (2) Pyelonephritis Current Visit: Yes Status: Suspected Assessment and plan: Urinalysis shows moderate blood, large leukocyte esterase, too numerous to count WBC, many yeast. Preliminary blood cultures negative, urine culture is still pending. Continue IV Rocephin. Patient had hematuria yesterday, improving ; (3) Diabetes mellitus Current Visit: Yes Status: Chronic Assessment and plan: Blood sugars noted to be elevated. HbA1C uncontrolled at 14.3%; patient states she has no insurance and cannot afford insulin; to d/w returned case inspector; Continue sliding scale insulin, increase basal insulin and add nutritional insulin. Accu -Chek blood glucose monitoring. Diabetic diet. Qualifiers: Diabetes mellitus type: type 2 Diabetes mellitus termite control technician insulin use: with termite control technician use Diabetes mellitus complication status: with circulatory complication Diabetes mellitus complication detail: with other circulatory complications Qualified Code(s): E11.59 - Type 2 diabetes mellitus with other circulatory complications; Z79.4 - intermodal dispatcher (current) use of insulin (4) CAD (coronary artery disease) Current Visit: Yes Status: Chronic Qualifiers: Coronary Disease-Associated Artery/Lesion type: [place] artery [place] vs. transplanted heart: [place] heart Associated angina: without angina Qualified Code(s): I25.10 - Atherosclerotic heart disease of [place] coronary artery without angina pectoris (5) DVT prophylaxis Current Visit: Yes Status: Acute (6) Renal cell carcinoma Current Visit: Yes Status: Chronic Assessment and plan: Follows with oncology as outpatient. has right renal cell carcinoma status post partial nephrectomy in 2003. Qualifiers: Laterality: unspecified laterality Qualified Code(s): C64.9 - Malignant neoplasm of unspecified kidney, except renal pelvis (7) Essential hypertension Current Visit: Yes Status: Chronic Assessment and plan: Blood pressure is now increasing; will resume beta niru and ARB; if continues to be high, may resume nitrate tomorrow; (8) CVA (cerebral vascular accident) Current Visit: Yes Status: Chronic Assessment and plan: Reports intermittent vertigo and issues with balance due to previous stroke. Physical and occupational therapy evaluation noted- stable, no needs at discharge. Continue aspirin and statin. 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 (9) Morbid obesity with BMI of 50.0-59.9, adult Current Visit: Yes Status: Chronic - Time Spent With Patient Total time spent is greater than 50% in coordination of care (as documented) at patient's floor/unit and/or counseling patient: - Subjective Interval history: Feels better; denies chest pain, dyspnea; improving hematuria; reports calf pain in left leg, no swelling/redness; no fever/chills; - Constitutional Vitals: Temp Pulse Resp BP Pulse Ox 97.7 F 79 18 145/74 100 03/27/18 11:21 03/27/18 11:21 03/27/18 11:21 03/27/18 11:21 03/27/18 11:21 General appearance: Present: A&O X 3, morbidly obese, answers questions appropriately - Respiratory Respiratory exam: Present: CTAB. Absent: accessory muscle use, rales, rhonchi, wheezes - Cardiovascular Cardiovascular exam: Present: RRR, +S1, +S2. Absent: diastolic murmur, gallop, rubs, systolic murmur - GI/Abdominal GI/Abdominal exam: Present: normal bowel sounds, soft (obese), no peritoneal signs. Absent: distended, tenderness - Extremities Exam Extremities exam: Present: full ROM, pedal edema (trace with chronic discoloration and healed leg wounds), warm, radial pulses palpable and symmetrical. Absent: calf tenderness, cyanotic - Neurological Exam Neurological exam: Present: CN II-XII intact, oriented X3, no focal deficits. Absent: pronater drift, facial droop, speech deficit Internal Medicine: Result - Labs CBC & Chem 7: 03/27/18 02:39 03/27/18 02:39 Labs: Short CBC 03/27/18 Range/Units 02:39 WBC 6.5 (4.3-11.1) K/mcL Hgb 14.0 (11.5-15.4) g/dL Hct 40.9 (35.3-44.9) % Plt Count 175 (140-400) K/mcL Neutrophils # 3.1 (1.6-8.9) K/mcL BMP 03/27/18 02:39 Sodium 135 L Potassium 4.3 Chloride 106 Carbon Dioxide 24 BUN 16 Creatinine 0.84 Glucose 313 H Calcium 9.0 - ABG Interpretation ABG results: PT/INR, D-dimer PT 10.8 Seconds (9.4-12.1) 03/25/18 11:03 - Impressions Impressions Echocardiogram 03/27/18 09:48 Impressions: LVEF 60-65%. Moderate left ventricular diastolic dysfunction. Normal right ventricular structure and function. Mild mitral regurgitation. Mild tricuspid regurgitation. Mild pulmonic regurgitation. No pulmonary hypertension. Left Ventricular Wall Motion: Rest Echo Findings All wall segments showed normal motion. Findings: Study Quality * Technically adequate exam. ECG Findings * Normal sinus rhythm. Left Ventricle * LVEF 60-65%. * Normal LV chamber size, wall thickness and function. * Moderate left ventricular diastolic dysfunction. Right Ventricle * Normal right ventricular structure and function. Left Atrium * Mildly dilated left atrium. Right Atrium * Normal right atrial size. Mitral Valve * Normal mitral valve structure. * No mitral stenosis. * Mild mitral regurgitation. Aortic Valve * No aortic regurgitation. * Aortic valve not well visualized. * No aortic stenosis. Tricuspid Valve * Tricuspid valve not well visualized. * Mild tricuspid regurgitation. * Estimated RA pressure is 3 mmHg. * Estimated RVSP is 23 mmHg. * No pulmonary hypertension. Pulmonic Valve * Pulmonic valve is not well visualized. * No pulmonic stenosis. * Mild pulmonic regurgitation. Pulmonary Artery * Pulmonary artery not well visualized. Aorta * Normally sized aortic root. Pericardium * There is no pericardial effusion present. Interatrial Septum * No evidence of PFO by color Doppler. IVC * Normal IVC dimensions and inspiratory collapse. - VTE Documentation of Mechanical Device: Intermittent pneumatic compression device Consult Discharge Plan - Plan Referrals: Calli Chapa, ASSEMBLER W[employer]ATE [Primary Care Provider] -
[2018-03-27] MEDS: Nystatin POWDER 30 GM BOTTLE TP SCH (21:04)
[2018-03-27 22:21] LABS: Basophils % 0.4 %; Eosinophils # 0.4 K/mcL (0.0-0.6); Eosinophils % 4.4 %; Hematocrit 46.2 % (35.3-44.9); Hemoglobin 15.8 g/dL (11.5-15.4); Immature Granulocytes % 0.3 % (0-4); Lymphocytes # 3.1 K/mcL (0.6-4.6); Lymphocytes % 32.9 %; Mean Corpuscular HGB Conc 34.2 g/dL (31.6-35.5); Mean Corpuscular Hemoglobin 30.2 pg (28.0-33.3); Mean Corpuscular Volume 88.3 fL (83.0-100.0); Mean Platelet Volume 10.9 fL (9.4-12.4); Monocytes # 0.7 K/mcL (0.0-1.3); Monocytes % 7.1 %; Neutrophils # 5.2 K/mcL (1.6-8.9); Platelet Count 210 K/mcL (140-400); Red Blood Count 5.23 M/mcL (3.82-4.97); Red Cell Distribution Width 13.3 % (11.5-14.5); Segmented Neutrophils % 54.9 %
[2018-03-28] MEDS: cefTRIAXone 2,000 MG in Water for inj. (sterile) 20 ML 20 ML IVP SCH (04:05)
[2018-03-28] MEDS: *HR* Heparin 5,000 UNIT/ML VIAL SQ SCH ×4 (04:11→15:46)
[2018-03-28 05:16] LABS: BUN/Creatinine Ratio 26 (6-26); Blood Urea Nitrogen 15 mg/dL (8-23); Carbon Dioxide 25 mEq/L (23-29); Chloride 105 mEq/L (98-107); Glucose 295 mg/dL (70-105); Magnesium 1.4 mg/dL (1.6-2.6); Osmolality,Calculated 294 (280-300); Potassium 4.2 mEq/L (3.5-5.1); Sodium 136 mEq/L (136-145); eGFR For Non-African Americans > 60 (> 60)
[2018-03-28] MEDS: Aspirin 81 MG TAB.CHEW PO SCH (08:56)
[2018-03-28] MEDS: Loratadine 10 MG TABLET PO SCH (08:57)
[2018-03-28] MEDS: Metoprolol XL (24 HR) Succ 25 MG TAB.ER.24H PO SCH (08:57)
[2018-03-28] MEDS: Gabapentin 300 MG CAPSULE PO SCH ×3 (08:57→22:03)
[2018-03-28] MEDS: Nystatin POWDER 30 GM BOTTLE TP SCH ×2 (08:58→22:13)
[2018-03-28] MEDS: Insulin LISPRO 300 UNITS/3 ML VIAL SQ SCH ×7 (09:07→22:12)
[2018-03-28] MEDS: Insulin DETEMIR 100 UNIT/ML X5UNITS SQ SCH (09:07)
[2018-03-28] MEDS ORDERED: Ondansetron 4 MG/2 ML VIAL IVP ONE (12:42)
[2018-03-28] MEDS ORDERED: Insulin DETEMIR 100 UNIT/ML X5UNITS SQ SCH ×2 (14:00→21:00)
[2018-03-28] MEDS: Fluconazole 100 MG TABLET PO SCH (15:42)
--- NOTE | 2018-03-28 15:47 | Internal Med Progress Note ---
Hospitalist Progress Note - Encounter Date of Encounter: 03/28/18 Time of Encounter: 15:34 - Subjective Interval History: Patient denies fever chills nausea vomiting headache dizziness chest pain shortness of breath, abdominal pain, urinary complaint or bowel complaint. Improving hematuria-much clear urine. Review the lab with low magnesium. - Exam Vitals: Temp Pulse Resp BP Pulse Ox 97.5 F L 70 16 113/71 92 03/28/18 11:40 03/28/18 13:37 03/28/18 13:35 03/28/18 11:40 03/28/18 13:35 Exam: General appearance: No acute distress, A&O X 3, obese Head exam: Atraumatic Eye exam: EOMI, PERRLA ENT exam: Moist oral mucosa Neck nontender, supple Respiratory exam: Clear to auscultation bilaterally Cardiovascular exam: Regular rate and rhythm Abdominal exam: Soft, nontender, nondistended, positive bowel sounds Extremities exam: No calf tenderness, no pedal edema Present: Skin- warm, dry, intact Neurological exam: Grossly CN II-XII intact, no focal deficits. No facial droop. Normal speech. Normal gait. - Assessment and Plan (1) Pyelonephritis Current Visit: Yes Status: Suspected Assessment and Plan: Based on clinical assessment as patient had right flank pain with abnormal urine analysis associated with sepsis. CT abdomen with no suggestive finding of pyelonephritis. Patient developed hematuria but now clearing up. Patient needs to get evaluated for new onset hematuria therefore consulted urologists. Urine culture with yeast. Diflucan 100 mg by mouth twice a day started. Blood culture with no growth. Will stop Rocephin (2) Chest pain Current Visit: Yes Status: Acute Assessment and Plan: Resolved. Patient also has history of chronic angina and follow Dr. Johnston cardiology on OPD. Patient did not had cardiac workup for a few years. Patient has multiple risk factors therefore needs cardiac evaluation. A stress tests ordered and consulted cardiology. Continue aspirin, Plavix, statin, M.D. her. Continue telemetry monitoring. Echocardiogram shows preserved EF, moderate LV diastolic dysfunction, mild MR/TR/MT; CT angiogram of chest showed no PE, aortic dissection, showed mediastinal and axillary adenopathy, bilateral pulmonary nodules. Patient needs outpatient follow-up. (3) CAD (coronary artery disease) Current Visit: Yes Status: Chronic Assessment and Plan: Episodes of chest pain prior to presentation, troponin is negative. Echocardiogram with preserved EF moderate LV diastolic dysfunction, mild MR TR MT. Patient has chronic angina as well but did not had any cardiac workup done for few years as per patient. A stress test order and also consulted cardiology. Patient follow Dr. Shantel Johnston as outpatient for her heart. Continue home medicine. (4) CVA (cerebral vascular accident) Current Visit: Yes Status: Chronic Assessment and Plan: Reports intermittent vertigo and issues with balance as a residual symptoms due to previous stroke. Physical and occupational therapy evaluation noted- stable. Continue aspirin and statin. (5) Diabetes mellitus Current Visit: Yes Status: Chronic Assessment and Plan: Blood sugars noted to be elevated. HbA1C uncontrolled at 14.3%. Continue sliding scale insulin, increase basal insulin 18 units twice a day and add nutritional insulin. Accu-Chek blood glucose monitoring. Diabetic diet. Patient has Medicaid insurance and she was not aware. (6) Morbid obesity with BMI of 50.0-59.9, adult Current Visit: Yes Status: Chronic Assessment and Plan: That education and exercise as per PCP advice (7) Renal cell carcinoma Current Visit: Yes Status: Chronic Assessment and Plan: Follows with oncology as outpatient. has right renal cell carcinoma status post partial nephrectomy in 2003. In remission at present (8) Essential hypertension Current Visit: Yes Status: Chronic Assessment and Plan: Blood pressure better controlled but is still high therefore resumed nitrate. Continue beta niru and ARB. (9) Electrolyte imbalance Current Visit: Yes Status: Acute Assessment and Plan: Low magnesium. Replacement and monitoring (10) DVT prophylaxis Current Visit: Yes Status: Acute Assessment and Plan: Stop heparin due to concern of hematuria. Patient is also ambulating. Continue SCDs. - Time Spent with Patient Total time spent is greater than 50% in coordination of care (as documented) at patient's floor/unit and/or counseling patient: Greater than 35 minutes (Specimen more than 35 minute inpatient care communication with patient, family, nursing staff, consultants) Internal Medicine: Result - Labs CBC & Chem 7: 03/27/18 21:57 03/28/18 04:12 Labs: Short CBC 03/27/18 Range/Units 21:57 WBC 9.4 (4.3-11.1) K/mcL Hgb 15.8 H D (11.5-15.4) g/dL Hct 46.2 H (35.3-44.9) % Plt Count 210 (140-400) K/mcL Neutrophils # 5.2 (1.6-8.9) K/mcL BMP 03/28/18 04:12 Sodium 136 Potassium 4.2 Chloride 105 Carbon Dioxide 25 BUN 15 Creatinine 0.57 L Glucose 295 H Calcium 9.0 - ABG Interpretation ABG results: PT/INR, D-dimer PT 10.8 Seconds (9.4-12.1) 03/25/18 11:03 - VTE Documentation of Mechanical Device: Intermittent pneumatic compression device Consult Discharge Plan - Plan Referrals: Calli Chapa, METALLURGICAL LAB TECHNICIAN [Primary Care Provider] - 04/06/18 11:00 am (2) Chest pain Qualifiers: Chest pain type: unspecified Qualified Code(s): R07.9 - Chest pain, unspecified (3) CAD (coronary artery disease) Qualifiers: Coronary Disease-Associated Artery/Lesion type: [place] artery [place] vs. 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
[2018-03-28] MEDS ORDERED: Ondansetron 4 MG/2 ML VIAL IVP PRN (18:15)
[2018-03-28] MEDS: Isosorbide MONOnitrate (24 HR) 60 MG TAB.ER.24H PO SCH (22:06)
[2018-03-29] MEDS: cefTRIAXone 2,000 MG in Water for inj. (sterile) 20 ML 20 ML IVP SCH (03:45)
[2018-03-29 04:17] LABS: Basophils # 0.1 K/mcL (0.0-0.2); Basophils % 0.6 %; Eosinophils # 0.3 K/mcL (0.0-0.6); Eosinophils % 3.3 %; Hematocrit 40.2 % (35.3-44.9); Immature Granulocytes % 0.2 % (0-4); Lymphocytes # 2.8 K/mcL (0.6-4.6); Lymphocytes % 31.5 %; Mean Corpuscular HGB Conc 33.8 g/dL (31.6-35.5); Mean Corpuscular Hemoglobin 29.6 pg (28.0-33.3); Mean Corpuscular Volume 87.4 fL (83.0-100.0); Mean Platelet Volume 10.6 fL (9.4-12.4); Monocytes # 0.6 K/mcL (0.0-1.3); Monocytes % 6.6 %; Neutrophils # 5.2 K/mcL (1.6-8.9); Platelet Count 195 K/mcL (140-400); Red Cell Distribution Width 13.5 % (11.5-14.5); Segmented Neutrophils % 57.8 %
[2018-03-29 04:24] LABS: BUN/Creatinine Ratio 25 (6-26); Blood Urea Nitrogen 15 mg/dL (8-23); Carbon Dioxide 25 mEq/L (23-29); Chloride 102 mEq/L (98-107); Glucose 320 mg/dL (70-105); Hemoglobin 13.6 g/dL (11.5-15.4); Magnesium 1.4 mg/dL (1.6-2.6); Osmolality,Calculated 289 (280-300); Potassium 4.2 mEq/L (3.5-5.1); Sodium 133 mEq/L (136-145); eGFR For Non-African Americans > 60 (> 60)
[2018-03-29] MEDS ORDERED: Regadenoson 0.4 MG/5 ML SYRINGE IVP ONE (07:08)
[2018-03-29] MEDS: Isosorbide MONOnitrate (24 HR) 60 MG TAB.ER.24H PO SCH (08:19)
[2018-03-29] MEDS: Metoprolol XL (24 HR) Succ 25 MG TAB.ER.24H PO SCH (08:19)
[2018-03-29] MEDS: Fluconazole 100 MG TABLET PO SCH (08:33)
[2018-03-29] MEDS: Aspirin 81 MG TAB.CHEW PO SCH (08:33)
[2018-03-29] MEDS: Gabapentin 300 MG CAPSULE PO SCH ×2 (08:34→13:55)
[2018-03-29] MEDS: Loratadine 10 MG TABLET PO SCH (08:34)
[2018-03-29] MEDS: Insulin LISPRO 300 UNITS/3 ML VIAL SQ SCH ×6 (08:36→16:37)
[2018-03-29] MEDS: Nystatin POWDER 30 GM BOTTLE TP SCH (08:44)
[2018-03-29] MEDS ORDERED: Pantoprazole 40 MG VIAL IVP SCH (09:00)
[2018-03-29] MEDS ORDERED: Insulin DETEMIR 100 UNIT/ML X5UNITS SQ SCH (09:00)
--- NOTE | 2018-03-29 09:22 | Cardiology Consult Note ---
Date of Encounter: 03/29/18 Time of Encounter: 09:00 Assessment and Plan (1) Chest pain Current Visit: Yes Status: Chronic Per cardiology: -Presented with chest pain, states similar to her chronic angina. -Denies current chest pain. Denies exertional symptoms. -Previous [facility] 2010 with luminal irregularities in LAD, 10% proximal circumflex. -Stress test 2013 negative for ischemia or infarct. -Has had chronic angina, and takes imdur. -TTE this admission with LVEF 60-65%, moderate diastolic dysfunction, mild MR, mild TR, mild TX, no segmental wall motion abnormalities noted. -ECG with no acute changes noted. -Troponins negative x2. -Stress has been ordered by primary service, however is hypotensive BP 80s systolic this am. -Chest pain is chronic, can consider outpatient stress test. Will cancel inpatient stress. Has close follow up with primary nanoelectronics engineer, Dr.Jennifer Johnston. -Anticipate cardiology sign off. Qualifiers: Chest pain type: unspecified Qualified Code(s): R07.9 - Chest pain, unspecified (2) Pyelonephritis Current Visit: Yes Status: Suspected Per cardiology: -suspected pyelonephritis per primary service. -On anti-fungals. -Management per primary service. (3) CAD (coronary artery disease) Current Visit: Yes Status: Chronic Per cardiology: -Known minimal CAD per [facility] 2010. -On asa, statin, BB, plavix, imdur. -Reports chronic angina. Qualifiers: Coronary Disease-Associated Artery/Lesion type: [place] artery [place] vs. transplanted heart: [place] heart Associated angina: without angina Qualified Code(s): I25.10 - Atherosclerotic heart disease of [place] coronary artery without angina pectoris Discussion w patient/family: The assessment and plan as outlined above was discussed with the patient who expressed understanding and agreement. All questions were answered. Thank you for involving us in the care of your patient. Please call with any questions. Discussed and reviewed with . History of Present Illness Consult date: 03/28/18 Requesting physician: Lynsey Painting Consult reason: chest pain Chief complaint: chest pain, generalized illness History of present illness: Ms. Senior is a 62 year old female with a relevant past medical history of DM, obesity, renal cancer s/p partial right nephrectomy, previous tobacco abuse, HLD , HTN, vertigo, previous CVA, minimal CAD, chronic angina who presented to [facility] with complaints of chest discomfort, similar to previous angina. Patient states she was at her outpatient oncology appointment and she mentioned to provider that she was having chest pain, provider recommended she present to ER. Patient also reports she has just generally not been feeling well for a few days. Patient states her angina resolved in ER, denies recurrence since admission. Denies current chest pain, discomfort. Denies exertional symptoms. Reports some shortness of breath, about baseline. Reports fatigue. Past Med Surg Social Fam HX - Past Medical History Attestation: Yes The following information was validated with the patient. Source: patient, old records reviewed Medical history: cancer, coronary artery disease, CVA, diabetes, hyperlipidemia , hypertension, other Additional medical history: Renal Cell Carcinoma. Kidney Cancer-2003 Psychiatric history: no psych history - Past Surgical History Surgical History: cancer surgery, cholecystectomy, hysterectomy, orthopedic, other, other Additional surgical history: Neck Surgery - Social History Smoking Status: Former smoker Smokeless Tobacco Status: No Alcohol use: none Drug use: none - Family History Mother Living Status: Hx Family Cancer: Yes (colon) Medications and Allergies Aspirin 81 mg PO DAILY 07/23/16 [History] Buspirone HCl [Buspar] 7.5 mg PO BID 07/23/16 [History] Cetirizine HCl [Zyrtec] 10 mg PO DAILY 07/23/16 [History] Docusate [Colace] 100 mg PO DAILY 07/23/16 [History] Gabapentin [Neurontin] 600 mg PO TID 07/23/16 [History] Metoprolol XL (24 HR) Succ [Toprol Xl] 25 mg PO DAILY 07/23/16 [History] Nitroglycerin [Nitrostat] 0.4 mg SL Q5M PRN 07/23/16 [History] Sertraline [Zoloft] 50 mg PO DAILY 07/23/16 [History] Atorvastatin Calcium 80 mg PO DAILY #60 tablet 07/27/16 [Rx] Clopidogrel [Plavix] 75 mg PO DAILY #60 tablet 07/27/16 [Rx] metFORMIN [Glucophage] 500 mg PO BIDWM #60 tablet 07/27/16 [Rx] Methocarbamol [Robaxin] 750 mg PO Q8HR PRN #21 tablet 06/05/17 [Rx] Isosorbide MONOnitrate (24 HR) [Imdur] 60 mg PO BID 03/25/18 [History] Losartan [Cozaar] 25 mg PO DAILY 03/25/18 [History] 3 Allergy/AdvReac Type Severity Reaction Status Date / Time citalopram [From Celexa] Allergy See Verified 03/25/18 09:24 Comments Penicillins Allergy Hives Verified 03/25/18 09:24 codeine AdvReac Nausea Verified 03/25/18 09:24 All Systems Review: The remainder of the systems were reviewed and are negative - Constitutional Constitutional: fatigue - Cardiovascular Cardiovascular: as per HPI, chest pain at rest Physical Examination Vital Signs, Last 4 Hours Temp Pulse Resp BP Pulse Ox 03/29/18 07:40 97.6 F 75 18 89/52 99 General: Conversant, No Apparent Distress HEENT: Atraumatic, Normocephaly, Mucus Membranes Moist Neck: No JVD, Normal carotid pulses Cardiac: Reg Rate and Rhythm, Normal S1 and S2, No Murmur Lungs: Normal Breath Sounds, No Wheeze, Rales, Rhonchi Neuro: Alert and responsive, No focal deficits noted Abdomen: Soft, Non-Tender Skin: No rashes noted on visualized skin Musculoskeletal: No Chest Wall Tenderness Extremities: No Clubbing, No Cyanosis, No Edema, Normal Pulses Results 03/29/18 03:51 03/29/18 03:51 Lab Results Active Medications Aspirin (Aspirin) 81 mg PO DAILY [facility] Stop: 09/25/18 09:01 Last Admin: 03/29/18 08:33 Dose: 81 mg Atorvastatin Calcium (Lipitor) 80 mg PO DAILY [facility] Stop: 09/25/18 09:01 Last Admin: 03/29/18 08:34 Dose: 80 mg Buspirone HCl (Buspar) 7.5 mg PO BID [facility] Stop: 09/24/18 21:01 Last Admin: 03/29/18 08:34 Dose: 7.5 mg Clopidogrel Bisulfate (Plavix) 75 mg PO DAILY [facility] Stop: 09/25/18 09:01 Last Admin: 03/29/18 08:34 Dose: 75 mg Dextrose/Water (Dextrose 50% (Syg)) 25 ml IVP AD PRN PRN Reason: Hypoglycemia Stop: 09/24/18 17:35 Docusate Sodium (Colace) 100 mg PO DAILY [facility] PRN Reason: Protocol Stop: 09/25/18 09:01 Last Admin: 03/29/18 08:35 Dose: 100 mg Fluconazole (Diflucan) 200 mg PO DAILY [facility] Stop: 03/31/18 15:16 Last Admin: 03/29/18 08:33 Dose: 200 mg Gabapentin (Neurontin) 600 mg PO TID [facility] Stop: 09/24/18 21:01 Last Admin: 03/29/18 08:34 Dose: 600 mg Glucagon (Glucagen) 1 mg IM ONCE PRN PRN Reason: Hypoglycemia Stop: 09/24/18 17:35 Glucose (Gluctose) 15 gm PO ONCE PRN PRN Reason: Hypoglycemia Stop: 09/24/18 17:35 Glucose (Gluctose) 30 gm PO ONCE PRN PRN Reason: Hypoglycemia Stop: 09/24/18 17:35 Dextrose (Dextrose 5%) 1,000 mls @ 100 mls/hr IVC .Q10H PRN PRN Reason: HYPOGLYCEMIA Stop: 09/24/18 17:35 Ceftriaxone Sodium 2,000 mg/ (Sterile Water) 20 mls @ 600 mls/hr IVP Q24H [facility] Stop: 09/25/18 04:01 Last Infusion: 03/29/18 03:49 Dose: Infused Magnesium Sulfate 2 gm/ Sodium (Chloride) 104 mls @ 52 mls/hr IVPB ONCE ONE Stop: 03/29/18 09:38 Last Admin: 03/29/18 08:34 Dose: 52 mls/hr Insulin Detemir (Levemir) 22 unit SQ BID [facility] Stop: 09/28/18 09:01 Last Admin: 03/29/18 08:35 Dose: 22 unit Insulin Human Lispro (Humalog) 0 units SQ HS [facility] PRN Reason: Protocol Stop: 09/24/18 21:01 Last Admin: 03/28/18 22:12 Dose: 5 units Insulin Human Lispro (Humalog) 0 units SQ TIDAC [facility] PRN Reason: Protocol Stop: 09/25/18 07:31 Last Admin: 03/29/18 08:36 Dose: 12 units Insulin Human Lispro (Humalog) 10 units SQ TIDWM [facility] Stop: 09/26/18 12:01 Last Admin: 03/29/18 08:36 Dose: 10 unit Isosorbide Mononitrate (Imdur) 60 mg PO BID [facility] Stop: 09/27/18 21:01 Last Admin: 03/29/18 08:19 Dose: Not Given Loratadine (Claritin) 10 mg PO DAILY [facility] Stop: 09/25/18 09:01 Last Admin: 03/29/18 08:34 Dose: 10 mg Losartan Potassium (Cozaar) 25 mg PO DAILY [facility] PRN Reason: Protocol Stop: 09/26/18 09:01 Last Admin: 03/29/18 08:19 Dose: Not Given Methocarbamol (Robaxin) 750 mg PO Q8HR PRN PRN Reason: Spasms Stop: 09/24/18 17:44 Last Admin: 03/27/18 21:08 Dose: 750 mg Metoprolol Succinate (Toprol Xl) 25 mg PO DAILY [facility] Stop: 09/26/18 09:01 Last Admin: 03/29/18 08:19 Dose: Not Given Naloxone HCl (Narcan) 0.4 mg IVP Q2MIN PRN PRN Reason: SEE COMMENTS Stop: 09/24/18 17:35 Nitroglycerin (Nitroglycerin) 0.4 mg SL Q5M PRN PRN Reason: Chest Pain Stop: 09/24/18 17:44 Nystatin (Nystop) 1 appl TP BID [facility] Stop: 09/26/18 21:01 Last Admin: 03/29/18 08:44 Dose: 1 appl Ondansetron HCl (Zofran) 4 mg IVP Q6HR PRN; Protocol PRN Reason: Nausea Stop: 09/27/18 18:16 Pantoprazole Sodium (Protonix) 40 mg IVP DAILY [facility] Stop: 09/28/18 09:01 Last Admin: 03/29/18 08:33 Dose: 40 mg Sertraline HCl (Zoloft) 50 mg PO DAILY [facility] Stop: 09/25/18 09:01 Last Admin: 03/29/18 08:33 Dose: 50 mg Laboratory Tests 03/25/18 03/25/18 03/29/18 11:03 18:58 03:51 Hgb 13.6 D Potassium Creatinine Magnesium Troponin I < 0.03 < 0.03 03/29/18 03:51 Hgb Potassium 4.2 Creatinine 0.59 L Magnesium 1.4 L Troponin I - Imaging and Cardiology Chest Xray: report reviewed Stress Test: report reviewed Echo: report reviewed Cardiac cath: report reviewed - EKG Interpretation EKG results cardiology: personally reviewed (ECG with SR, HR 91.), other ( Telemetry reviewed with average HR previous 12 hours noted to be 79, SR. PACs noted.) Consult Discharge Plan - Plan Referrals: Calli Chapa CNP [Primary Care Provider] - 04/06/18 11:00 am
[2018-03-29 16:00] VITALS: BP 106/86
--- NOTE | 2018-03-29 17:12 | Urology - Consult Note ---
Date of Encounter: 03/29/18 Time of Encounter: 17:10 - Assessment and Plan (1) Gross hematuria Current Visit: Yes Status: Acute Assessment and plan: This appears to be resolving and is most likely secondary to patient's fungal UTI. Recommend 2 week course of antifungals. Patient will be scheduled to follow up with me in 3-4 weeks for repeat urinalysis. (2) UTI (urinary tract infection) Current Visit: Yes Status: Acute Assessment and plan: 2 week course of antifungal. Patient informed that she needs to have tight blood sugar control to completely resolve this fungal UTI. Qualifiers: Urinary tract infection type: site unspecified Hematuria presence: with hematuria Qualified Code(s): N39.0 - Urinary tract infection, site not specified; R31.9 - Hematuria, unspecified (3) Renal cell carcinoma Current Visit: Yes Status: Chronic Assessment and plan: Patient with history of right partial nephrectomy. CT scan from January did not show any obvious recurrence. Qualifiers: Laterality: right Qualified Code(s): C64.1 - Malignant neoplasm of right kidney, except renal pelvis Urology CN:HPI Consult date: 03/29/18 Reason for consult Urology: Gross Hematuria Requesting physician: Lynsey Painting History of present illness: Shamika is a 62-year-old female with a history of recent admission to the hospital secondary to chest pain. Patient was found to have gross hematuria and urine culture revealed fungus. Patient is currently on antifungal medication. Her hematuria has seemed to resolve with initiation of treatment. Patient has been a poorly controlled diabetic as she states that she lost her insurance and cannot afford her insulin. Patient's blood sugar has been improved since arrival to the hospital. Patient denies any problems with recurrent urinary tract infections prior to this admission to the hospital. No flank pain. Patient also with history of right renal cell carcinoma status post right partial nephrectomy years ago. Past Med Surg Social Fam HX - Past Medical History Medical history: cancer, coronary artery disease, CVA, diabetes, hyperlipidemia , hypertension, other Additional medical history: Renal Cell Carcinoma. Kidney Cancer-2003 Psychiatric history: no psych history - Past Surgical History Surgical History: cancer surgery, cholecystectomy, hysterectomy, orthopedic, other, other Additional surgical history: Neck Surgery - Social History Smoking Status: Former smoker Smokeless Tobacco Status: No Alcohol use: none Drug use: none - Family History Mother Living Status: Hx Family Cancer: Yes (colon) Medications and Allergies Aspirin 81 mg PO DAILY 07/23/16 [History] Buspirone HCl [Buspar] 7.5 mg PO BID 07/23/16 [History] Cetirizine HCl [Zyrtec] 10 mg PO DAILY 07/23/16 [History] Docusate [Colace] 100 mg PO DAILY 07/23/16 [History] Gabapentin [Neurontin] 600 mg PO TID 07/23/16 [History] Metoprolol XL (24 HR) Succ [Toprol Xl] 25 mg PO DAILY 07/23/16 [History] Nitroglycerin [Nitrostat] 0.4 mg SL Q5M PRN 07/23/16 [History] Sertraline [Zoloft] 50 mg PO DAILY 07/23/16 [History] Atorvastatin Calcium 80 mg PO DAILY #60 tablet 07/27/16 [Rx] Clopidogrel [Plavix] 75 mg PO DAILY #60 tablet 07/27/16 [Rx] metFORMIN [Glucophage] 500 mg PO BIDWM #60 tablet 07/27/16 [Rx] Methocarbamol [Robaxin] 750 mg PO Q8HR PRN #21 tablet 06/05/17 [Rx] Isosorbide MONOnitrate (24 HR) [Imdur] 60 mg PO BID 03/25/18 [History] Losartan [Cozaar] 25 mg PO DAILY 03/25/18 [History] 3 Allergy/AdvReac Type Severity Reaction Status Date / Time citalopram [From Celexa] Allergy See Verified 03/25/18 09:24 Comments Penicillins Allergy Hives Verified 03/25/18 09:24 codeine AdvReac Nausea Verified 03/25/18 09:24 Review of Systems - Constitutional no chills, no fever(s) - EENT Nose, mouth and throat: no dizziness, no sore throat - Cardiovascular no chest pain, no dyspnea - Respiratory no cough - Gastrointestinal no abdominal pain, no nausea, no vomiting - Genitourinary Genitourinary: hematuria, no nocturia - Musculoskeletal no back pain - Integumentary no erythema - Neurological no confusion, no weakness - Psychiatric no anxiety, no confusion - Hematologic/Lymphatic no easy bleeding, no lymphadenopathy - Allergic/Immunologic no wheezing Exam Initial Vital Signs Temp Pulse Resp BP Pulse Ox 97.5 F L 93 18 78/51 97 03/25/18 10:37 03/25/18 10:37 03/25/18 10:37 03/25/18 10:37 03/25/18 10:37 General: alert and oriented Eyes: pupils normal, non-icteric Neck: no lymphadenopathy noted, no jvd Cardiovascular: RRR, no murmurs Respiratory: normal respiratory effort, clear bilaterally ABD: soft, nontender, no masses, severely morbidly obese Back: no pain on percussion bilaterally : Urethral catheter in place draining clear urine in tubing Skin: no rashes noted Musculoskeletal: Full range of motion 4 Psych: appropriate affect, alert to time and place Urology Results - Labs 03/29/18 03:51 03/29/18 03:51 Abnormal lab results Sodium 133 mEq/L (136-145) L 03/29/18 03:51 Creatinine 0.59 mg/dL (0.60-1.20) L 03/29/18 03:51 Glucose 320 mg/dL (70-105) H 03/29/18 03:51 POC Glucose 229 mg/dL (70-99) H 03/28/18 19:18 Hemoglobin A1c 14.3 % (-5.6) H 03/27/18 02:39 Magnesium 1.4 mg/dL (1.6-2.6) L 03/29/18 03:51 Urine Clarity Turbid (Clear) A 03/25/18 15:14 Ur Specific [place] > 1.030 (1.010-1.025) H 03/25/18 15:14 Urine Glucose (UA) >=1000 mg/dL (Normal) H 03/25/18 15:14 Urine Blood Moderate (Negative) H 03/25/18 15:14 Ur Leukocyte Esterase Large (Negative) H 03/25/18 15:14 Urine Microscopic WBC TNTC per hpf (0-3) H 03/25/18 15:14 Urine Yeast Many per hpf (None Seen) H 03/25/18 15:14 Diabetes panel 03/29/18 Range/Units 03:51 Sodium 133 L (136-145) mEq/L Potassium 4.2 (3.5-5.1) mEq/L Chloride 102 (98-107) mEq/L Carbon Dioxide 25 (23-29) mEq/L BUN 15 (8-23) mg/dL Creatinine 0.59 L (0.60-1.20) mg/dL Glucose 320 H (70-105) mg/dL Calcium 9.0 (8.6-10.3) mg/dL Calcium panel 03/29/18 Range/Units 03:51 Calcium 9.0 (8.6-10.3) mg/dL Pituitary panel 03/29/18 Range/Units 03:51 Sodium 133 L (136-145) mEq/L Potassium 4.2 (3.5-5.1) mEq/L Chloride 102 (98-107) mEq/L Carbon Dioxide 25 (23-29) mEq/L BUN 15 (8-23) mg/dL Creatinine 0.59 L (0.60-1.20) mg/dL Glucose 320 H (70-105) mg/dL Calcium 9.0 (8.6-10.3) mg/dL Adrenal panel 03/29/18 Range/Units 03:51 Sodium 133 L (136-145) mEq/L Potassium 4.2 (3.5-5.1) mEq/L Chloride 102 (98-107) mEq/L Carbon Dioxide 25 (23-29) mEq/L BUN 15 (8-23) mg/dL Creatinine 0.59 L (0.60-1.20) mg/dL Glucose 320 H (70-105) mg/dL Calcium 9.0 (8.6-10.3) mg/dL All other labs normal. Consult Discharge Plan - Plan Referrals: Calli Chapa, CARLYN [Primary Care Provider] - 04/06/18 11:00 am
--- NOTE | 2018-03-29 17:17 | Event Note ---
Date of Encounter: 03/29/18 Time of Encounter: 17:17 Okay to remove catheter per primary team.
--- NOTE | 2018-03-29 17:27 | Discharge Summary ---
- NOTES TO OUTPATIENT PROVIDER Notes to Outpatient Provider: Follow-up with PCP in 2-3 days-diabetes management. Follow-up with urologist in 3-4 weeks. Follow-up with her assembler erector's Dr. Shantel Johnston in 1 week Orders not resulted at time of discharge: Pending orders 03/25/18 18:58 Culture,Blood [BC] Stat Culture,Blood,Additional [BC] Stat Date of Encounter: 03/29/18 Time of Encounter: 17:25 - Discharge Diagnosis (1) UTI (urinary tract infection) Priority: Primary Status: Acute Assessment and Plan: Urine culture with fungal infection. Patient also had gross immaturity and therefore urologist was consulted. As hematuria was resolving therefore it was thought likely secondary to patient's fungal UTI and urologist recommended 2 week course of antifungal and follow-up with him in 3-4 weeks for repeat urinalysis. Patient also need tight blood glucose level control. She was not taking insulin as she was not aware that she has Medicaid insurance. Now blood glucose level is better controlled but she need help from primary care physician to titrate the medication. On admission there was suspected pyelonephritis based on clinical presentation but CT abdomen with no suggestive finding therefore less likely. Blood culture with no growth. Qualifiers: Urinary tract infection type: site unspecified Hematuria presence: with hematuria Qualified Code(s): N39.0 - Urinary tract infection, site not specified; R31.9 - Hematuria, unspecified (2) Chest pain Priority: Primary Status: Chronic Assessment and Plan: Resolved. Patient also has history of chronic angina and follow Dr. Johnston cardiology on OPD. Patient did not had cardiac workup for a few years. Patient has multiple risk factors therefore needs cardiac evaluation. A stress tests was ordered and consulted cardiologists. A stress test was put on hold as her blood pressure was running low but it was advised to get it done on OPD basis with the help of her assembler erector's this week. Continue home medication. Echocardiogram shows preserved EF, moderate LV diastolic dysfunction, mild MR /TR/WV; CT angiogram of chest showed no PE, aortic dissection, showed mediastinal and axillary adenopathy, bilateral pulmonary nodules. Qualifiers: Chest pain type: unspecified Qualified Code(s): R07.9 - Chest pain, unspecified (3) CAD (coronary artery disease) Priority: Secondary Status: Chronic Assessment and Plan: Plan as above Qualifiers: Coronary Disease-Associated Artery/Lesion type: [place] artery [place] vs. transplanted heart: [place] heart Associated angina: without angina Qualified Code(s): I25.10 - Atherosclerotic heart disease of [place] coronary artery without angina pectoris (4) CVA (cerebral vascular accident) Priority: Secondary Status: Chronic Assessment and Plan: Reports intermittent vertigo and issues with balance as a residual symptoms due to previous stroke. Physical and occupational therapy evaluation noted- stable. Continue aspirin and statin. 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 HbA1C uncontrolled at 14.3%. Will discharge patient on long-acting insulin Levemir 25 unit twice a day subcutaneous and continue OHA. Further management as per PCP. Qualifiers: Diabetes mellitus type: type 2 Diabetes mellitus installation coordinator insulin use: with installation coordinator use Diabetes mellitus complication status: with circulatory complication Diabetes mellitus complication detail: with other circulatory complications Qualified Code(s): E11.59 - Type 2 diabetes mellitus with other circulatory complications; Z79.4 - correction (current) use of insulin (6) Morbid obesity with BMI of 50.0-59.9, adult Priority: Secondary Status: Chronic Assessment and Plan: That education and exercise as per PCP advice. She may get benefited to get established with weight loss clinic (7) Renal cell carcinoma Priority: Secondary Status: Chronic Assessment and Plan: Follows with oncology as outpatient. has right renal cell carcinoma status post partial nephrectomy in 2003. In remission at present Qualifiers: Laterality: right Qualified Code(s): C64.1 - Malignant neoplasm of right kidney, except renal pelvis (8) Essential hypertension Priority: Primary Status: Chronic Assessment and Plan: Blood pressure running low normal therefore decrease losartan dose 12.5 mg. Continue beta niru and nitrate. Advised to check blood pressure and heart rate if further low blood pressure then needs to contact PCP and assembler erector. (9) Electrolyte imbalance Priority: Primary Status: Acute Assessment and Plan: Low magnesium. Will discharge patient on oral magnesium tablets. PCP need to follow magnesium level (10) Pyelonephritis Priority: Primary Status: Suspected Assessment and Plan: Less likely Hospital course: Ms. Senior is a 62 year old female patient got admitted for the evaluation of chest pain and right flank pain. Earlier suspicion for pyelonephritis therefore IV antibiotic was started but CT was abdomen was no suggestive of pyelonephritis. Patient also developed gross immaturity of therefore urologist was consulted. Urine culture with yeast infection therefore urologist advised to discharge patient home on fluconazole 200 mg by mouth daily for total 14 days. Patient already got to days dose in the hospital therefore for discharge on fluconazole for 12 days. Her chest pain resolved and echocardiogram with no acute finding but based on multiple risk factor in previous CAD a stress test ordered but it was held by assembler erector as patient has low blood pressure and patient asymptomatic with no chest pain. Warp Tier's okay to discharge patient home with follow-up with her assembler erector Dr. Shantel Johnston to get outpatient stress tests and further cardiac evaluation. Please see details in diagnosis section of discharge summary. At the time of discharge patient is clinically stable, ambulating and tolerating diet. Diabetes education in supply was given . Also discussed the importance of having tight blood glucose control. Discharge discussed with: patient - Time Spent with Patient Total time spent providing and/or coordinating discharge services: - Discharge Medications Home Medications: Aspirin 81 mg PO DAILY 07/23/16 [History] Buspirone HCl [Buspar] 7.5 mg PO BID 07/23/16 [History] Cetirizine HCl [Zyrtec] 10 mg PO DAILY 07/23/16 [History] Docusate [Colace] 100 mg PO DAILY 07/23/16 [History] Gabapentin [Neurontin] 600 mg PO TID 07/23/16 [History] Metoprolol XL (24 HR) Succ [Toprol Xl] 25 mg PO DAILY 07/23/16 [History] Nitroglycerin [Nitrostat] 0.4 mg SL Q5M PRN 07/23/16 [History] Sertraline [Zoloft] 50 mg PO DAILY 07/23/16 [History] Atorvastatin Calcium 80 mg PO DAILY #60 tablet 07/27/16 [Rx] Clopidogrel [Plavix] 75 mg PO DAILY #60 tablet 07/27/16 [Rx] metFORMIN [Glucophage] 500 mg PO BIDWM #60 tablet 07/27/16 [Rx] Methocarbamol [Robaxin] 750 mg PO Q8HR PRN #21 tablet 06/05/17 [Rx] Isosorbide MONOnitrate (24 HR) [Imdur] 60 mg PO BID 03/25/18 [History] Losartan [Cozaar] 25 mg PO DAILY 03/25/18 [History] Allergies/Adverse Reactions: 3 Allergy/AdvReac Type Severity Reaction Status Date / Time citalopram [From Celexa] Allergy See Verified 03/25/18 09:24 Comments Penicillins Allergy Hives Verified 03/25/18 09:24 codeine AdvReac Nausea Verified 03/25/18 09:24 Date of admission: 03/25/18 17:35 Primary care physician: Calli Chapa CNP Consults: 03/26/18 09:30 Consult to Physical Therapy [CONS] Routine Comment: Evaluate, develop and implement POC Reason for Consult: h/o- CVA, vertigo, balance and gait instability Does patient have active BEDREST order?: No Is patient medically & hemodynamically stable?: Yes Patient assessed for mobility or mobilized this visit?: Yes 03/28/18 07:36 Consult to [facility] [CONS] Stat Reason for SW Consult: Concern over affording medications and treatment 03/28/18 15:49 Consult to Urology [CONS] Routine Consulting Provider: Urology Lara Reason for Consult: hematuria Call Completed: Yes 03/28/18 15:52 Consult to Cardiology [CONS] Routine Comment: Consulting Provider: Cardiology Lara Reason for Consult: Chest pain Call Completed: Yes - Constitutional Vitals: Temp Pulse Resp BP Pulse Ox 97.5 F L 73 18 106/86 100 03/29/18 15:56 03/29/18 15:56 03/29/18 15:56 03/29/18 15:56 03/29/18 15:56 General appearance: Present: A&O X 3, morbidly obese, answers questions appropriately Exam: General appearance: No acute distress, A&O X 3, obese Head exam: Atraumatic Eye exam: EOMI, PERRLA ENT exam: Moist oral mucosa Neck nontender, supple Respiratory exam: Clear to auscultation bilaterally Cardiovascular exam: Regular rate and rhythm, no systolic murmur Abdominal exam: Soft, nontender, nondistended, positive bowel sounds Extremities exam: No calf tenderness, no pedal edema Present: Skin-no rash, warm, dry, intact Neurological exam: Alert, awake, oriented 3, CN II-XII intact, no focal deficits. No facial droop. Normal speech. Normal gait. - Patient Status Disposition: Home, Self-Care Condition: Good Overall status at discharge: patient is back to baseline - Discharge Instructions Follow Up With: Calli Chapa CNP [Primary Care Provider] - 04/06/18 11:00 am - Diet and Activity Activity: increase activity as tolerated Diet: diabetic diet, low fat, low cholesterol, low salt diet - VTE Documentation of Mechanical Device: Venous foot pump, device
[2018-03-29] MEDS ORDERED: Magnesium Oxide 400 MG TABLET PO SCH (21:00)
== END 2018-03-29 19:34 | disposition home or self-care (01) | DRG 720 ==
LOC: EMEROO 10:34 → 2NNU 10:34 → SUATTDRO 17:35 → 2NNU 17:59
PROVIDERS: ADMIT Internal Medicine; ATTEND Internal Medicine

== ENCOUNTER 2019-06-07 15:35 | Observation (INO) ==
[2019-06-07] MEDS ORDERED: levoFLOXacin 500 MG/100 ML 500 MG/100 ML BAG IVPB ONE (16:21)
[2019-06-07 16:55] LABS: Hematocrit 38.9 % (35.3-44.9); Hemoglobin 12.7 g/dL (11.5-15.4); Mean Corpuscular HGB Conc 32.6 g/dL (31.6-35.5); Mean Corpuscular Hemoglobin 28.1 pg (28.0-33.3); Mean Corpuscular Volume 86.1 fL (83.0-100.0); Red Blood Count 4.52 M/mcL (3.82-4.97); White Blood Count 12.7 K/mcL (4.3-11.1)
[2019-06-07 16:56] LABS: Basophils % 0.2 %; Eosinophils # 0.3 K/mcL (0.0-0.6); Eosinophils % 2.4 %; Immature Granulocytes % 0.5 % (0-4); Lymphocytes # 2.3 K/mcL (0.6-4.6); Lymphocytes % 18.3 %; Mean Platelet Volume 10.3 fL (9.4-12.4); Monocytes # 0.9 K/mcL (0.0-1.3); Monocytes % 7.2 %; Neutrophils # 9.1 K/mcL (1.6-8.9); Platelet Count 288 K/mcL (140-400); Segmented Neutrophils % 71.4 %
[2019-06-07 17:15] LABS: Alanine Aminotransferase 16 Units/L (7-52); Albumin 3.8 g/dL (3.5-5.7); Alkaline Phosphatase 148 Units/L (34-104); Aspartate Amino Transferase 13 Units/L (13-39); BUN/Creatinine Ratio 21 (6-26); Bilirubin,Total 0.5 mg/dL (0.3-1.0); Blood Urea Nitrogen 15 mg/dL (8-23); Calcium 9.2 mg/dL (8.6-10.3); Carbon Dioxide 28 mEq/L (23-29); Chloride 97 mEq/L (98-107); Globulin 3.9 g/dL (2.4-3.5); Glucose 323 mg/dL (70-105); Osmolality,Calculated 289 (280-300); Potassium 4.3 mEq/L (3.5-5.1); Sodium 133 mEq/L (136-145); Total Protein 7.7 g/dL (6.4-8.9); eGFR For African Americans > 60 (> 60); eGFR For Non-African Americans > 60 (> 60)
[2019-06-07] MEDS ORDERED: Naloxone 0.4 MG/ML INJ IVP PRN (18:19)
[2019-06-07] MEDS ORDERED: Ondansetron ODT 4 MG TAB.RAPDIS SL PRN (18:19)
[2019-06-07] MEDS ORDERED: Dextrose Gel 15 GM/37.5 ML TUBE PO PRN ×2 (22:14)
[2019-06-07] MEDS ORDERED: *HR* Dextrose 50 % in Water (Syg) 50 ML SYRINGE IVP PRN (22:14)
[2019-06-07] MEDS ORDERED: D5% in Water 1,000 ML IVC PRN (22:14)
[2019-06-07] MEDS: Gabapentin 300 MG CAPSULE PO SCH (22:49)
[2019-06-07] MEDS: Insulin LISPRO 300 UNITS/3 ML VIAL SQ SCH (22:52)
[2019-06-08] MEDS: Clindamycin 900 MG/50 ML 900 MG/50 ML IV.SOLN IVPB SCH ×3 (00:23→16:59)
[2019-06-08 04:15] LABS: Hematocrit 34.7 % (35.3-44.9); Hemoglobin 11.4 g/dL (11.5-15.4); Mean Corpuscular HGB Conc 32.9 g/dL (31.6-35.5); Mean Corpuscular Hemoglobin 28.4 pg (28.0-33.3); Mean Corpuscular Volume 86.5 fL (83.0-100.0); Mean Platelet Volume 10.4 fL (9.4-12.4); Platelet Count 240 K/mcL (140-400); Red Blood Count 4.01 M/mcL (3.82-4.97); Red Cell Distribution Width 13.8 % (11.5-14.5); White Blood Count 10.8 K/mcL (4.3-11.1)
[2019-06-08 04:34] LABS: BUN/Creatinine Ratio 19 (6-26); Blood Urea Nitrogen 12 mg/dL (8-23); Calcium 8.8 mg/dL (8.6-10.3); Carbon Dioxide 26 mEq/L (23-29); Chloride 98 mEq/L (98-107); Glucose 334 mg/dL (70-105); Osmolality,Calculated 291 (280-300); Potassium 4.2 mEq/L (3.5-5.1); Sodium 134 mEq/L (136-145); eGFR For African Americans > 60 (> 60); eGFR For Non-African Americans > 60 (> 60)
[2019-06-08] MEDS: *HR* Heparin 5,000 UNIT/ML VIAL SQ SCH ×2 (05:19→17:01)
[2019-06-08] MEDS: Aspirin 81 MG TAB.CHEW PO SCH (08:22)
[2019-06-08] MEDS: Cholecalciferol (D-3) 1,000 UNIT (25MCG) TABLET PO SCH (08:22)
[2019-06-08] MEDS: Isosorbide MONOnitrate (24 HR) 60 MG TAB.ER.24H PO SCH (08:22)
[2019-06-08] MEDS: Gabapentin 300 MG CAPSULE PO SCH ×3 (08:22→20:07)
[2019-06-08] MEDS: Metoprolol XL (24 HR) Succ 50 MG TAB.ER.24H PO SCH (08:23)
[2019-06-08] MEDS: Furosemide 20 MG TABLET PO SCH (08:23)
[2019-06-08] MEDS: Magnesium Oxide 400 MG TABLET PO SCH (08:23)
[2019-06-08] MEDS: Insulin DETEMIR 100 UNIT/ML X5UNITS SQ SCH ×2 (08:24→20:08)
[2019-06-08] MEDS: Insulin LISPRO 300 UNITS/3 ML VIAL SQ SCH ×4 (08:25→20:10)
[2019-06-08] MEDS ORDERED: Aminoglycoside Consult 1 EACH MC ONE (12:20)
[2019-06-09] MEDS: Clindamycin 900 MG/50 ML 900 MG/50 ML IV.SOLN IVPB SCH ×3 (01:56→16:36)
[2019-06-09 05:04] LABS: Hematocrit 35.7 % (35.3-44.9); Hemoglobin 11.5 g/dL (11.5-15.4); Mean Corpuscular HGB Conc 32.2 g/dL (31.6-35.5); Mean Corpuscular Volume 87.1 fL (83.0-100.0); Mean Platelet Volume 10.1 fL (9.4-12.4); Platelet Count 272 K/mcL (140-400); Red Cell Distribution Width 14.2 % (11.5-14.5)
[2019-06-09] MEDS: *HR* Heparin 5,000 UNIT/ML VIAL SQ SCH ×2 (05:06→16:38)
[2019-06-09 05:23] LABS: BUN/Creatinine Ratio 22 (6-26); Blood Urea Nitrogen 17 mg/dL (8-23); Carbon Dioxide 24 mEq/L (23-29); Chloride 101 mEq/L (98-107); Glucose 254 mg/dL (70-105); Osmolality,Calculated 288 (280-300); Potassium 4.1 mEq/L (3.5-5.1); Sodium 134 mEq/L (136-145); eGFR For African Americans > 60 (> 60); eGFR For Non-African Americans > 60 (> 60)
[2019-06-09] MEDS: Isosorbide MONOnitrate (24 HR) 60 MG TAB.ER.24H PO SCH (08:24)
[2019-06-09] MEDS: Magnesium Oxide 400 MG TABLET PO SCH (08:25)
[2019-06-09] MEDS: Gabapentin 300 MG CAPSULE PO SCH ×3 (08:25→19:57)
[2019-06-09] MEDS: Furosemide 20 MG TABLET PO SCH (08:25)
[2019-06-09] MEDS: Cholecalciferol (D-3) 1,000 UNIT (25MCG) TABLET PO SCH (08:25)
[2019-06-09] MEDS: Metoprolol XL (24 HR) Succ 50 MG TAB.ER.24H PO SCH (08:25)
[2019-06-09] MEDS: Aspirin 81 MG TAB.CHEW PO SCH (08:26)
[2019-06-09] MEDS: Insulin LISPRO 300 UNITS/3 ML VIAL SQ SCH ×4 (08:30→19:58)
[2019-06-09] MEDS: Insulin DETEMIR 100 UNIT/ML X5UNITS SQ SCH ×2 (08:30→19:59)
[2019-06-10] MEDS: Clindamycin 900 MG/50 ML 900 MG/50 ML IV.SOLN IVPB SCH ×2 (00:01→08:40)
[2019-06-10 04:45] VITALS: BP 167/92
[2019-06-10] MEDS: *HR* Heparin 5,000 UNIT/ML VIAL SQ SCH (05:38)
[2019-06-10] MEDS: Insulin LISPRO 300 UNITS/3 ML VIAL SQ SCH ×2 (08:38→13:28)
[2019-06-10] MEDS: Insulin DETEMIR 100 UNIT/ML X5UNITS SQ SCH (08:39)
[2019-06-10] MEDS: Cholecalciferol (D-3) 1,000 UNIT (25MCG) TABLET PO SCH (08:41)
[2019-06-10] MEDS: Magnesium Oxide 400 MG TABLET PO SCH (08:41)
[2019-06-10] MEDS: Furosemide 20 MG TABLET PO SCH (08:42)
[2019-06-10] MEDS: Metoprolol XL (24 HR) Succ 50 MG TAB.ER.24H PO SCH (08:42)
[2019-06-10] MEDS: Gabapentin 300 MG CAPSULE PO SCH (08:42)
[2019-06-10] MEDS: Isosorbide MONOnitrate (24 HR) 60 MG TAB.ER.24H PO SCH (08:42)
[2019-06-10] MEDS: Aspirin 81 MG TAB.CHEW PO SCH (08:46)
[2019-06-10 11:03] LABS: Hematocrit 35.9 % (35.3-44.9); Hemoglobin 11.7 g/dL (11.5-15.4); Mean Corpuscular HGB Conc 32.6 g/dL (31.6-35.5); Mean Corpuscular Hemoglobin 28.3 pg (28.0-33.3); Mean Corpuscular Volume 86.7 fL (83.0-100.0); Mean Platelet Volume 10.7 fL (9.4-12.4); Platelet Count 283 K/mcL (140-400); Red Blood Count 4.14 M/mcL (3.82-4.97); Red Cell Distribution Width 14.2 % (11.5-14.5); White Blood Count 9.7 K/mcL (4.3-11.1)
[2019-06-10 11:23] LABS: BUN/Creatinine Ratio 18 (6-26); Blood Urea Nitrogen 14 mg/dL (8-23); Carbon Dioxide 28 mEq/L (23-29); Chloride 100 mEq/L (98-107); Glucose 351 mg/dL (70-105); Osmolality,Calculated 291 (280-300); Potassium 4.4 mEq/L (3.5-5.1); Sodium 133 mEq/L (136-145); eGFR For African Americans > 60 (> 60); eGFR For Non-African Americans > 60 (> 60)
== END 2019-06-10 12:21 | disposition home or self-care (01) ==
LOC: 3ANU 15:35 → EMEROOARM 15:35 → SUATTDRO 18:03 → 3ANU 18:51
PROVIDERS: ADMIT Family Medicine; ATTEND Family Medicine

== ENCOUNTER 2019-06-16 17:32 | Inpatient (IN) ==
[2019-06-16] MEDS ORDERED: 0.9 % Sodium Chloride 1,000 ML IVC ONE (17:53)
[2019-06-16] MEDS ORDERED: Clindamycin 900 MG/50 ML 900 MG/50 ML IV.SOLN IVPB ONE (18:19)
[2019-06-16 19:05] LABS: Bilirubin,Urine Small (Negative); Blood,Urine Negative (Negative); Clarity,Urine Cloudy (Clear); Color,Urine Yellow (Yellow); Glucose,Urine (UA) 500 mg/dL (Normal); Ketones,Urine Negative (Negative); Leukocyte Esterase,Urine Small (Negative); Nitrite,Urine Negative (Negative); PH,Urine 5.5 pH Units (5.0-8.0); Protein,Urine 30 mg/dL (Neg-Trace); Specific Gravity,Urine 1.026 (1.010-1.025); Urobilinogen,Urine Normal (Normal)
[2019-06-16 19:07] LABS: RBC,Urine 15-30 per hpf (0-3); Squamous Epithelial Cell,Urine Many per lpf (None-Few)
[2019-06-16] MEDS ORDERED: Cefepime HCl 2,000 MG in Water for inj. (sterile) 20 ML IVP ONE (19:12)
[2019-06-16 19:15] LABS: Bacteria,Urine Few per hpf (None-Few)
[2019-06-16 19:15] LABS: Basophils % 0.3 %; Eosinophils # 0.5 K/mcL (0.0-0.6); Eosinophils % 4.4 %; Hematocrit 37.9 % (35.3-44.9); Hemoglobin 12.4 g/dL (11.5-15.4); Immature Granulocytes % 0.5 % (0-4); Lymphocytes # 3.6 K/mcL (0.6-4.6); Lymphocytes % 30.7 %; Mean Corpuscular HGB Conc 32.7 g/dL (31.6-35.5); Mean Corpuscular Hemoglobin 28.2 pg (28.0-33.3); Mean Corpuscular Volume 86.3 fL (83.0-100.0); Mean Platelet Volume 10.1 fL (9.4-12.4); Monocytes # 0.8 K/mcL (0.0-1.3); Monocytes % 7.2 %; Neutrophils # 6.6 K/mcL (1.6-8.9); Nucleated Red Blood Cells 0.2 /100 WBC (0); Platelet Count 331 K/mcL (140-400); Red Blood Count 4.39 M/mcL (3.82-4.97); Red Cell Distribution Width 14.4 % (11.5-14.5); Segmented Neutrophils % 56.9 %; White Blood Count 11.6 K/mcL (4.3-11.1)
[2019-06-16 19:23] LABS: INR 1.1; Prothrombin Time 12.3 Seconds (9.4-12.1)
[2019-06-16 19:25] LABS: Activated Partial Thrombo Time 31.6 Seconds (26.0-36.0)
[2019-06-16 19:30] LABS: BUN/Creatinine Ratio 27 (6-26); Blood Urea Nitrogen 26 mg/dL (8-23); Calcium 9.3 mg/dL (8.6-10.3); Carbon Dioxide 28 mEq/L (23-29); Chloride 100 mEq/L (98-107); Glucose 151 mg/dL (70-105); Osmolality,Calculated 290 (280-300); Potassium 4.5 mEq/L (3.5-5.1); Sodium 136 mEq/L (136-145); eGFR For African Americans > 60 (> 60); eGFR For Non-African Americans 59 (> 60)
[2019-06-16] MEDS ORDERED: Naloxone 0.4 MG/ML INJ IVP PRN (22:06)
[2019-06-16] MEDS ORDERED: D5% in Water 1,000 ML IVC PRN (22:06)
[2019-06-16] MEDS ORDERED: *HR* Dextrose 50 % in Water (Syg) 50 ML SYRINGE IVP PRN (22:06)
[2019-06-16] MEDS ORDERED: Dextrose Gel 15 GM/37.5 ML TUBE PO PRN ×2 (22:06)
[2019-06-16] MEDS: *HR* Heparin 5,000 UNIT/ML VIAL SQ SCH (23:16)
[2019-06-17] MEDS: Cefepime HCl 1,000 MG in 0.9 % Sodium Chloride Mini Bag 100 ML IVPB SCH ×2 (05:53→18:00)
[2019-06-17] MEDS: *HR* Heparin 5,000 UNIT/ML VIAL SQ SCH ×3 (05:53→20:51)
[2019-06-17 05:55] LABS: Basophils % 0.4 %; Eosinophils # 0.5 K/mcL (0.0-0.6); Eosinophils % 5.3 %; Hematocrit 35.9 % (35.3-44.9); Hemoglobin 11.9 g/dL (11.5-15.4); Immature Granulocytes % 0.3 % (0-4); Mean Corpuscular HGB Conc 33.1 g/dL (31.6-35.5); Mean Corpuscular Hemoglobin 28.2 pg (28.0-33.3); Mean Corpuscular Volume 85.1 fL (83.0-100.0); Mean Platelet Volume 10.4 fL (9.4-12.4); Monocytes # 0.6 K/mcL (0.0-1.3); Monocytes % 6.7 %; Platelet Count 294 K/mcL (140-400); Red Blood Count 4.22 M/mcL (3.82-4.97); Red Cell Distribution Width 14.4 % (11.5-14.5); Segmented Neutrophils % 65.3 %; White Blood Count 9.2 K/mcL (4.3-11.1)
[2019-06-17 06:01] LABS: INR 1.2; Prothrombin Time 13.1 Seconds (9.4-12.1)
[2019-06-17 06:14] LABS: Alanine Aminotransferase 12 Units/L (7-52); Albumin 3.2 g/dL (3.5-5.7); Alkaline Phosphatase 121 Units/L (34-104); Aspartate Amino Transferase 10 Units/L (13-39); BUN/Creatinine Ratio 26 (6-26); Bilirubin,Total 0.4 mg/dL (0.3-1.0); Blood Urea Nitrogen 20 mg/dL (8-23); Calcium 8.9 mg/dL (8.6-10.3); Carbon Dioxide 27 mEq/L (23-29); Chloride 102 mEq/L (98-107); Chol/HDL Ratio 4.1 (0-4.9); Cholesterol 115 mg/dL (< 200); Globulin 3.3 g/dL (2.4-3.5); Glucose 315 mg/dL (70-105); HDL Cholesterol 28 mg/dL (40-59); LDL Cholesterol,Calculated 50 mg/dL (0-99); Magnesium 1.3 mg/dL (1.6-2.6); Osmolality,Calculated 295 (280-300); Potassium 4.6 mEq/L (3.5-5.1); Sodium 135 mEq/L (136-145); Total Protein 6.5 g/dL (6.4-8.9); Triglycerides 183 mg/dL (< 150); eGFR For African Americans > 60 (> 60); eGFR For Non-African Americans > 60 (> 60)
[2019-06-17] MEDS: Isosorbide MONOnitrate (24 HR) 60 MG TAB.ER.24H PO SCH (07:48)
[2019-06-17] MEDS: Gabapentin 300 MG CAPSULE PO SCH ×3 (07:48→20:51)
[2019-06-17] MEDS: Aspirin 81 MG TAB.CHEW PO SCH (07:48)
[2019-06-17] MEDS: Furosemide 20 MG TABLET PO SCH (07:48)
[2019-06-17] MEDS: Metoprolol XL (24 HR) Succ 50 MG TAB.ER.24H PO SCH (07:48)
[2019-06-17] MEDS: *HR* HYDROcodone/Acet 5/325 mg TABLET PO PRN ×2 (09:34→18:01)
[2019-06-17] MEDS: Insulin LISPRO 300 UNITS/3 ML VIAL SQ SCH ×6 (09:51→17:24)
[2019-06-17] MEDS ORDERED: Insulin DETEMIR 100 UNIT/ML X5UNITS SQ SCH (21:20)
[2019-06-18 02:24] LABS: Hematocrit 36.1 % (35.3-44.9); Hemoglobin 11.4 g/dL (11.5-15.4); Mean Corpuscular HGB Conc 31.6 g/dL (31.6-35.5); Mean Corpuscular Hemoglobin 27.7 pg (28.0-33.3); Mean Corpuscular Volume 87.8 fL (83.0-100.0); Mean Platelet Volume 10.6 fL (9.4-12.4); Platelet Count 272 K/mcL (140-400); Red Blood Count 4.11 M/mcL (3.82-4.97); Red Cell Distribution Width 14.4 % (11.5-14.5); White Blood Count 8.1 K/mcL (4.3-11.1)
[2019-06-18 02:41] LABS: BUN/Creatinine Ratio 24 (6-26); Blood Urea Nitrogen 21 mg/dL (8-23); C-Reactive Protein 19 mg/L (Less than 10); Calcium 8.8 mg/dL (8.6-10.3); Carbon Dioxide 24 mEq/L (23-29); Chloride 104 mEq/L (98-107); Glucose 287 mg/dL (70-105); Osmolality,Calculated 293 (280-300); Potassium 4.5 mEq/L (3.5-5.1); Sodium 135 mEq/L (136-145); eGFR For African Americans > 60 (> 60); eGFR For Non-African Americans > 60 (> 60)
[2019-06-18] MEDS: Cefepime HCl 1,000 MG in 0.9 % Sodium Chloride Mini Bag 100 ML IVPB SCH ×2 (05:19→17:07)
[2019-06-18] MEDS: *HR* Heparin 5,000 UNIT/ML VIAL SQ SCH ×3 (05:19→20:23)
[2019-06-18] MEDS: Insulin LISPRO 300 UNITS/3 ML VIAL SQ SCH ×6 (07:15→17:07)
[2019-06-18] MEDS ORDERED: Insulin DETEMIR 100 UNIT/ML X5UNITS SQ SCH ×2 (09:00→21:00)
[2019-06-18] MEDS: Metoprolol XL (24 HR) Succ 50 MG TAB.ER.24H PO SCH (09:10)
[2019-06-18] MEDS: Aspirin 81 MG TAB.CHEW PO SCH (09:10)
[2019-06-18] MEDS: Isosorbide MONOnitrate (24 HR) 60 MG TAB.ER.24H PO SCH (09:10)
[2019-06-18] MEDS: Furosemide 20 MG TABLET PO SCH (09:10)
[2019-06-18] MEDS: Gabapentin 300 MG CAPSULE PO SCH ×3 (09:24→20:24)
[2019-06-18] MEDS: *HR* HYDROcodone/Acet 5/325 mg TABLET PO PRN ×2 (11:25→23:26)
[2019-06-18] MEDS: *HR* Metformin 500 MG TABLET PO SCH (17:06)
[2019-06-19 03:55] LABS: Hematocrit 37.8 % (35.3-44.9); Hemoglobin 12.7 g/dL (11.5-15.4); Mean Corpuscular HGB Conc 33.6 g/dL (31.6-35.5); Mean Corpuscular Hemoglobin 28.7 pg (28.0-33.3); Mean Corpuscular Volume 85.3 fL (83.0-100.0); Mean Platelet Volume 10.3 fL (9.4-12.4); Platelet Count 296 K/mcL (140-400); Red Blood Count 4.43 M/mcL (3.82-4.97); Red Cell Distribution Width 14.5 % (11.5-14.5); White Blood Count 9.4 K/mcL (4.3-11.1)
[2019-06-19 04:19] LABS: BUN/Creatinine Ratio 23 (6-26); Blood Urea Nitrogen 17 mg/dL (8-23); Calcium 9.2 mg/dL (8.6-10.3); Carbon Dioxide 25 mEq/L (23-29); Chloride 102 mEq/L (98-107); Glucose 251 mg/dL (70-105); Magnesium 1.4 mg/dL (1.6-2.6); Osmolality,Calculated 292 (280-300); Potassium 4.3 mEq/L (3.5-5.1); Sodium 136 mEq/L (136-145); eGFR For African Americans > 60 (> 60); eGFR For Non-African Americans > 60 (> 60)
[2019-06-19] MEDS: Cefepime HCl 1,000 MG in 0.9 % Sodium Chloride Mini Bag 100 ML IVPB SCH (05:51)
[2019-06-19] MEDS: *HR* Heparin 5,000 UNIT/ML VIAL SQ SCH ×3 (05:51→21:16)
[2019-06-19] MEDS: *HR* HYDROcodone/Acet 5/325 mg TABLET PO PRN (05:57)
[2019-06-19] MEDS ORDERED: Aminoglycoside Consult 1 EACH MC ONE (07:22)
[2019-06-19] MEDS: Gabapentin 300 MG CAPSULE PO SCH ×3 (08:51→21:16)
[2019-06-19] MEDS: Isosorbide MONOnitrate (24 HR) 60 MG TAB.ER.24H PO SCH (08:52)
[2019-06-19] MEDS: Furosemide 20 MG TABLET PO SCH (08:53)
[2019-06-19] MEDS: *HR* Metformin 500 MG TABLET PO SCH ×2 (08:54→16:13)
[2019-06-19] MEDS: Metoprolol XL (24 HR) Succ 50 MG TAB.ER.24H PO SCH (08:54)
[2019-06-19] MEDS: Aspirin 81 MG TAB.CHEW PO SCH (08:54)
[2019-06-19] MEDS: Insulin LISPRO 300 UNITS/3 ML VIAL SQ SCH ×6 (08:57→16:11)
[2019-06-19] MEDS ORDERED: Insulin DETEMIR 100 UNIT/ML X5UNITS SQ SCH (09:00)
[2019-06-19] MEDS ORDERED: Acetaminophen 325 MG TABLET PO PRN (11:18)
[2019-06-19] MEDS: Insulin DETEMIR 100 UNIT/ML X5UNITS SQ SCH (21:17)
[2019-06-19] MEDS ORDERED: Clotrimazole 1% CRM 15 GM TUBE TP PRN (23:56)
[2019-06-20] MEDS: *HR* Heparin 5,000 UNIT/ML VIAL SQ SCH ×2 (06:10→16:04)
[2019-06-20] MEDS: *HR* HYDROcodone/Acet 5/325 mg TABLET PO PRN (06:10)
[2019-06-20] MEDS: *HR* Metformin 500 MG TABLET PO SCH ×2 (08:44→16:04)
[2019-06-20] MEDS: Aspirin 81 MG TAB.CHEW PO SCH (08:44)
[2019-06-20] MEDS: Metoprolol XL (24 HR) Succ 50 MG TAB.ER.24H PO SCH (08:44)
[2019-06-20] MEDS: Isosorbide MONOnitrate (24 HR) 60 MG TAB.ER.24H PO SCH (08:44)
[2019-06-20] MEDS: Gabapentin 300 MG CAPSULE PO SCH ×2 (08:44→16:04)
[2019-06-20] MEDS: Furosemide 20 MG TABLET PO SCH (08:44)
[2019-06-20] MEDS: Insulin LISPRO 300 UNITS/3 ML VIAL SQ SCH ×6 (08:45→16:05)
[2019-06-20] MEDS: Insulin DETEMIR 100 UNIT/ML X5UNITS SQ SCH (08:55)
[2019-06-20] MEDS ORDERED: Acetaminophen 325 MG TABLET PO PRN (12:28)
[2019-06-20] MEDS ORDERED: *HR* HYDROcodone/Acet 5/325 mg TABLET PO PRN (12:29)
[2019-06-20 14:00] VITALS: BP 105/45
[2019-06-20] MEDS ORDERED: Insulin DETEMIR 100 UNIT/ML X5UNITS SQ SCH (21:00)
== END 2019-06-20 20:54 | DRG 48 ==
LOC: 3ANU 17:32 → EMEROOARM 17:32 → 3ANU 21:06 → SUATTDRO 22:06
PROVIDERS: ADMIT Internal Medicine; ATTEND Internal Medicine

== ENCOUNTER 2020-02-29 13:35 | Inpatient (IN) ==
[2020-02-29 16:57] LABS: Basophils % 0.4 %; Eosinophils # 0.3 K/mcL (0.0-0.6); Eosinophils % 2.5 %; Hematocrit 33.2 % (35.3-44.9); Hemoglobin 10.1 g/dL (11.5-15.4); Immature Granulocytes % 0.3 % (0-4); Lymphocytes # 1.9 K/mcL (0.6-4.6); Lymphocytes % 18.5 %; Mean Corpuscular HGB Conc 30.4 g/dL (31.6-35.5); Mean Corpuscular Hemoglobin 26.9 pg (28.0-33.3); Mean Corpuscular Volume 88.5 fL (83.0-100.0); Mean Platelet Volume 9.9 fL (9.4-12.4); Monocytes % 9.6 %; Neutrophils # 6.9 K/mcL (1.6-8.9); Platelet Count 196 K/mcL (140-400); Red Blood Count 3.75 M/mcL (3.82-4.97); Red Cell Distribution Width 15.6 % (11.5-14.5); Segmented Neutrophils % 68.7 %
[2020-02-29 17:11] LABS: BUN/Creatinine Ratio 25 (6-26); Blood Urea Nitrogen 22 mg/dL (8-23); Calcium 8.6 mg/dL (8.6-10.3); Carbon Dioxide 27 mEq/L (23-29); Chloride 105 mEq/L (98-107); Glucose 60 mg/dL (70-105); Osmolality,Calculated 283 (280-300); Potassium 4.5 mEq/L (3.5-5.1); Sodium 136 mEq/L (136-145); eGFR For African Americans > 60 (> 60); eGFR For Non-African Americans > 60 (> 60)
[2020-02-29 17:12] LABS: Troponin I < 0.03 ng/mL (< 0.04)
[2020-02-29] MEDS ORDERED: Isovue-370 500 ML BOTTLE IVP ONE (18:22)
[2020-02-29] MEDS ORDERED: Furosemide 40 MG/4 ML VIAL IVP ONE (18:43)
[2020-02-29] MEDS ORDERED: Nitroglycerin 0.4 MG TAB.SUBL SL PRN (18:45)
[2020-02-29] MEDS ORDERED: Azithromycin 500 MG in D5% in Water 250 ML IVPB ONE (20:12)
[2020-02-29] MEDS ORDERED: cefTRIAXone 1,000 MG in 0.9 % Sodium Chloride Mini Bag 100 ML IVPB ONE (20:12)
[2020-03-01] MEDS: *HR* Heparin 5,000 UNIT/ML VIAL SQ SCH ×3 (03:09→15:08)
[2020-03-01] MEDS ORDERED: *HR* Dextrose 50 % in Water (Vial) 50 ML VIAL IVP PRN (04:48)
[2020-03-01] MEDS ORDERED: D5% in Water 1,000 ML IVC PRN (04:48)
[2020-03-01] MEDS ORDERED: Dextrose Gel 15 GM/37.5 ML TUBE PO PRN ×2 (04:48)
[2020-03-01 07:18] LABS: BUN/Creatinine Ratio 26 (6-26); Blood Urea Nitrogen 22 mg/dL (8-23); Calcium 9.2 mg/dL (8.6-10.3); Carbon Dioxide 26 mEq/L (23-29); Chloride 101 mEq/L (98-107); Glucose 148 mg/dL (70-105); Osmolality,Calculated 288 (280-300); Sodium 136 mEq/L (136-145); eGFR For African Americans > 60 (> 60); eGFR For Non-African Americans > 60 (> 60)
[2020-03-01 07:21] LABS: Red Blood Count 3.93 M/mcL (3.82-4.97); White Blood Count 10.6 K/mcL (4.3-11.1)
[2020-03-01 07:22] LABS: Hematocrit 35.2 % (35.3-44.9); Hemoglobin 10.5 g/dL (11.5-15.4); Lymphocytes # 1.5 K/mcL (0.6-4.6); Lymphocytes % 13.7 %; Mean Corpuscular HGB Conc 29.8 g/dL (31.6-35.5); Mean Corpuscular Hemoglobin 26.7 pg (28.0-33.3); Mean Corpuscular Volume 89.6 fL (83.0-100.0); Mean Platelet Volume 10.5 fL (9.4-12.4); Monocytes # 0.7 K/mcL (0.0-1.3); Monocytes % 6.9 %; Neutrophils # 8.1 K/mcL (1.6-8.9); Platelet Count 214 K/mcL (140-400); Red Cell Distribution Width 15.3 % (11.5-14.5)
[2020-03-01 07:23] LABS: Basophils % 0.3 %; Eosinophils # 0.3 K/mcL (0.0-0.6); Eosinophils % 2.8 %; Immature Granulocytes % 0.3 % (0-4)
[2020-03-01] MEDS: Metoprolol XL (24 HR) Succ 50 MG TAB.ER.24H PO SCH (07:37)
[2020-03-01] MEDS: Gabapentin 300 MG CAPSULE PO SCH ×3 (07:38→21:28)
[2020-03-01] MEDS: Isosorbide MONOnitrate (24 HR) 60 MG TAB.ER.24H PO SCH (07:38)
[2020-03-01] MEDS: Aspirin 81 MG TAB.CHEW PO SCH (07:38)
[2020-03-01] MEDS: Insulin LISPRO 300 UNITS/3 ML VIAL SQ SCH ×3 (08:00→15:53)
[2020-03-01] MEDS ORDERED: Furosemide 20 MG TABLET PO SCH (09:00)
[2020-03-01] MEDS ORDERED: cefTRIAXone 1,000 MG in Water for inj. (sterile) 10 ML IVP SCH (09:00)
[2020-03-01] MEDS ORDERED: cefTRIAXone 1,000 MG in Water for inj. (sterile) 10 ML IVP ONE (15:06)
[2020-03-01] MEDS: Furosemide 40 MG/4 ML VIAL IVP SCH (21:28)
[2020-03-01] MEDS: Insulin DETEMIR 100 UNIT/ML X5UNITS SQ SCH (21:29)
[2020-03-01] MEDS: Azithromycin 250 MG TABLET PO SCH (21:29)
[2020-03-01] MEDS ORDERED: Azithromycin 500 MG in 0.9 % Sodium Chloride 250 ML IVPB SCH (22:00)
[2020-03-01] MEDS: Nystatin POWDER 30 GM BOTTLE TP SCH (23:47)
[2020-03-02] MEDS: *HR* Enoxaparin 40 MG/0.4 ML SYRINGE SQ SCH (06:02)
[2020-03-02 10:26] LABS: Hematocrit 35.3 % (35.3-44.9); Hemoglobin 11.2 g/dL (11.5-15.4); Mean Corpuscular HGB Conc 31.7 g/dL (31.6-35.5); Mean Corpuscular Hemoglobin 27.1 pg (28.0-33.3); Mean Corpuscular Volume 85.3 fL (83.0-100.0); Mean Platelet Volume 10.3 fL (9.4-12.4); Platelet Count 230 K/mcL (140-400); Red Blood Count 4.14 M/mcL (3.82-4.97); Red Cell Distribution Width 14.8 % (11.5-14.5); White Blood Count 7.6 K/mcL (4.3-11.1)
[2020-03-02 10:38] LABS: BUN/Creatinine Ratio 25 (6-26); Blood Urea Nitrogen 19 mg/dL (8-23); Carbon Dioxide 29 mEq/L (23-29); Chloride 102 mEq/L (98-107); Glucose 246 mg/dL (70-105); Osmolality,Calculated 294 (280-300); Potassium 4.3 mEq/L (3.5-5.1); Sodium 137 mEq/L (136-145); eGFR For African Americans > 60 (> 60); eGFR For Non-African Americans > 60 (> 60)
[2020-03-02] MEDS: Aspirin 81 MG TAB.CHEW PO SCH (11:16)
[2020-03-02] MEDS: Isosorbide MONOnitrate (24 HR) 60 MG TAB.ER.24H PO SCH (11:17)
[2020-03-02] MEDS: Metoprolol XL (24 HR) Succ 50 MG TAB.ER.24H PO SCH (11:17)
[2020-03-02] MEDS: Furosemide 40 MG/4 ML VIAL IVP SCH ×2 (11:18→17:21)
[2020-03-02] MEDS: Gabapentin 300 MG CAPSULE PO SCH ×3 (11:18→19:40)
[2020-03-02] MEDS: cefTRIAXone 2,000 MG in Water for inj. (sterile) 20 ML IVP SCH (11:18)
[2020-03-02] MEDS: Insulin DETEMIR 100 UNIT/ML X5UNITS SQ SCH ×2 (11:21→19:41)
[2020-03-02] MEDS: Insulin LISPRO 300 UNITS/3 ML VIAL SQ SCH ×3 (11:34→17:23)
[2020-03-02] MEDS: Nystatin POWDER 30 GM BOTTLE TP SCH ×2 (11:36→19:41)
[2020-03-02] MEDS: Azithromycin 250 MG TABLET PO SCH (19:41)
[2020-03-03] MEDS: *HR* Heparin 5,000 UNIT/ML VIAL SQ SCH (00:57)
[2020-03-03 03:47] LABS: Hematocrit 38.7 % (35.3-44.9); Mean Corpuscular Hemoglobin 26.8 pg (28.0-33.3); Mean Corpuscular Volume 86.6 fL (83.0-100.0); Platelet Count 269 K/mcL (140-400); Red Blood Count 4.47 M/mcL (3.82-4.97); Red Cell Distribution Width 15.1 % (11.5-14.5); White Blood Count 8.1 K/mcL (4.3-11.1)
[2020-03-03 04:08] LABS: BUN/Creatinine Ratio 25 (6-26); Blood Urea Nitrogen 20 mg/dL (8-23); Calcium 9.1 mg/dL (8.6-10.3); Carbon Dioxide 29 mEq/L (23-29); Chloride 101 mEq/L (98-107); Glucose 190 mg/dL (70-105); Osmolality,Calculated 296 (280-300); Potassium 4.2 mEq/L (3.5-5.1); Sodium 139 mEq/L (136-145); eGFR For African Americans > 60 (> 60); eGFR For Non-African Americans > 60 (> 60)
[2020-03-03] MEDS: *HR* Enoxaparin 40 MG/0.4 ML SYRINGE SQ SCH (05:06)
[2020-03-03] MEDS ORDERED: *HR* Metoprolol 5 MG/5 ML VIAL IVP ONE (05:42)
[2020-03-03] MEDS: Furosemide 40 MG/4 ML VIAL IVP SCH ×2 (07:56→16:57)
[2020-03-03] MEDS: Gabapentin 300 MG CAPSULE PO SCH ×3 (07:56→19:38)
[2020-03-03] MEDS: cefTRIAXone 2,000 MG in Water for inj. (sterile) 20 ML IVP SCH (07:57)
[2020-03-03] MEDS: Isosorbide MONOnitrate (24 HR) 60 MG TAB.ER.24H PO SCH (07:57)
[2020-03-03] MEDS: Metoprolol XL (24 HR) Succ 50 MG TAB.ER.24H PO SCH (07:57)
[2020-03-03] MEDS: Aspirin 81 MG TAB.CHEW PO SCH (07:57)
[2020-03-03] MEDS: Nystatin POWDER 30 GM BOTTLE TP SCH ×2 (07:58→19:41)
[2020-03-03] MEDS: Insulin LISPRO 300 UNITS/3 ML VIAL SQ SCH ×3 (08:01→17:02)
[2020-03-03] MEDS: Insulin DETEMIR 100 UNIT/ML X5UNITS SQ SCH ×2 (08:01→19:41)
[2020-03-03] MEDS ORDERED: Perflutren Lipid Microsphere 1.3 ML in 0.9 % Sodium Chloride 8.7 ML IVP ONE (11:00)
[2020-03-03] MEDS ORDERED: Metoprolol XL (24 HR) Succ 25 MG TAB.ER.24H PO ONE (15:40)
[2020-03-03] MEDS ORDERED: Acetaminophen 325 MG TABLET PO PRN (16:44)
[2020-03-03] MEDS ORDERED: 0.9 % Sodium Chloride 250 ML IVC ONE (16:44)
[2020-03-03] MEDS: *HR* HYDROcodone/Acet 5/325 mg TABLET PO PRN (17:56)
[2020-03-03 18:19] LABS: BUN/Creatinine Ratio 19 (6-26); Blood Urea Nitrogen 19 mg/dL (8-23); Calcium 8.5 mg/dL (8.6-10.3); Carbon Dioxide 27 mEq/L (23-29); Chloride 100 mEq/L (98-107); Glucose 274 mg/dL (70-105); Magnesium 1.3 mg/dL (1.6-2.6); Osmolality,Calculated 294 (280-300); Phosphorous 3.7 mg/dL (2.7-4.5); Potassium 4.3 mEq/L (3.5-5.1); Sodium 136 mEq/L (136-145); eGFR For African Americans > 60 (> 60); eGFR For Non-African Americans 58 (> 60)
[2020-03-03] MEDS ORDERED: Magnesium Sulfate 1 GM/102 ML PIGGYBACK IVPB ONE (18:52)
[2020-03-03] MEDS: Azithromycin 250 MG TABLET PO SCH (19:40)
[2020-03-03] MEDS ORDERED: Insulin LISPRO 300 UNITS/3 ML VIAL SQ SCH (21:00)
[2020-03-04 03:03] LABS: Hematocrit 35.1 % (35.3-44.9); Hemoglobin 10.9 g/dL (11.5-15.4); Mean Corpuscular HGB Conc 31.1 g/dL (31.6-35.5); Mean Corpuscular Hemoglobin 27.3 pg (28.0-33.3); Mean Platelet Volume 10.5 fL (9.4-12.4); Platelet Count 243 K/mcL (140-400); Red Blood Count 3.99 M/mcL (3.82-4.97); Red Cell Distribution Width 14.8 % (11.5-14.5); White Blood Count 8.7 K/mcL (4.3-11.1)
[2020-03-04 03:23] LABS: BUN/Creatinine Ratio 22 (6-26); Blood Urea Nitrogen 22 mg/dL (8-23); Calcium 8.4 mg/dL (8.6-10.3); Carbon Dioxide 28 mEq/L (23-29); Chloride 100 mEq/L (98-107); Glucose 331 mg/dL (70-105); Osmolality,Calculated 298 (280-300); Potassium 4.4 mEq/L (3.5-5.1); Sodium 136 mEq/L (136-145); eGFR For African Americans > 60 (> 60); eGFR For Non-African Americans 58 (> 60)
[2020-03-04 03:24] LABS: Magnesium 1.5 mg/dL (1.6-2.6); Phosphorous 3.8 mg/dL (2.7-4.5)
[2020-03-04] MEDS: *HR* Enoxaparin 40 MG/0.4 ML SYRINGE SQ SCH (05:25)
[2020-03-04] MEDS ORDERED: Magnesium Sulfate 1 GM/102 ML PIGGYBACK IVPB ONE (07:23)
[2020-03-04] MEDS: Metoprolol XL (24 HR) Succ 25 MG TAB.ER.24H PO SCH (09:23)
[2020-03-04] MEDS: Isosorbide MONOnitrate (24 HR) 60 MG TAB.ER.24H PO SCH (09:24)
[2020-03-04] MEDS: Gabapentin 300 MG CAPSULE PO SCH ×3 (09:24→20:16)
[2020-03-04] MEDS: Aspirin 81 MG TAB.CHEW PO SCH (09:24)
[2020-03-04] MEDS: Furosemide 20 MG/2 ML VIAL IVP SCH ×2 (09:24→20:16)
[2020-03-04] MEDS: cefTRIAXone 2,000 MG in Water for inj. (sterile) 20 ML IVP SCH (09:25)
[2020-03-04] MEDS: Insulin LISPRO 300 UNITS/3 ML VIAL SQ SCH ×4 (10:00→16:50)
[2020-03-04] MEDS: Nystatin POWDER 30 GM BOTTLE TP SCH ×2 (10:00→20:17)
[2020-03-04] MEDS: Insulin DETEMIR 100 UNIT/ML X5UNITS SQ SCH ×2 (10:00→20:18)
[2020-03-04] MEDS: Azithromycin 250 MG TABLET PO SCH (20:16)
[2020-03-04] MEDS ORDERED: Insulin LISPRO 300 UNITS/3 ML VIAL SQ SCH (21:00)
[2020-03-05] MEDS: *HR* HYDROcodone/Acet 5/325 mg TABLET PO PRN ×2 (02:46→12:06)
[2020-03-05] MEDS: *HR* Enoxaparin 40 MG/0.4 ML SYRINGE SQ SCH (04:51)
[2020-03-05] MEDS: Aspirin 81 MG TAB.CHEW PO SCH (09:02)
[2020-03-05] MEDS: Gabapentin 300 MG CAPSULE PO SCH ×2 (09:02→16:22)
[2020-03-05] MEDS: Metoprolol XL (24 HR) Succ 25 MG TAB.ER.24H PO SCH (09:03)
[2020-03-05] MEDS: Furosemide 20 MG/2 ML VIAL IVP SCH (09:03)
[2020-03-05] MEDS: Isosorbide MONOnitrate (24 HR) 60 MG TAB.ER.24H PO SCH (09:03)
[2020-03-05] MEDS: Insulin LISPRO 300 UNITS/3 ML VIAL SQ SCH ×2 (09:04→11:59)
[2020-03-05] MEDS: Nystatin POWDER 30 GM BOTTLE TP SCH (09:04)
[2020-03-05] MEDS: cefTRIAXone 2,000 MG in Water for inj. (sterile) 20 ML IVP SCH (09:04)
[2020-03-05] MEDS: Insulin DETEMIR 100 UNIT/ML X5UNITS SQ SCH (09:05)
[2020-03-05 09:37] LABS: Hematocrit 33.7 % (35.3-44.9); Hemoglobin 10.4 g/dL (11.5-15.4); Mean Corpuscular HGB Conc 30.9 g/dL (31.6-35.5); Mean Corpuscular Volume 87.5 fL (83.0-100.0); Mean Platelet Volume 10.5 fL (9.4-12.4); Platelet Count 229 K/mcL (140-400); Red Blood Count 3.85 M/mcL (3.82-4.97); Red Cell Distribution Width 14.8 % (11.5-14.5); White Blood Count 8.9 K/mcL (4.3-11.1)
[2020-03-05 09:57] LABS: BUN/Creatinine Ratio 34 (6-26); Blood Urea Nitrogen 31 mg/dL (8-23); Calcium 9.1 mg/dL (8.6-10.3); Carbon Dioxide 29 mEq/L (23-29); Chloride 100 mEq/L (98-107); Glucose 273 mg/dL (70-105); Magnesium 1.7 mg/dL (1.6-2.6); Osmolality,Calculated 298 (280-300); Phosphorous 3.3 mg/dL (2.7-4.5); Potassium 4.4 mEq/L (3.5-5.1); Sodium 136 mEq/L (136-145); eGFR For African Americans > 60 (> 60); eGFR For Non-African Americans > 60 (> 60)
[2020-03-05 16:13] LABS: INR 1.2; Prothrombin Time 13.8 Seconds (9.4-12.1)
[2020-03-05 19:25] VITALS: BP 146/86
== END 2020-03-05 19:44 | disposition home or self-care (01) | DRG 139 ==
LOC: EMEROOARM 13:35 → 2NENU 13:35 → SUATTDRO 21:50 → 2NENU 23:11 → 3BNU 03-02 22:42 → SUATTDRO 03-03 17:55 → 2ANU 03-04 18:17
PROVIDERS: ADMIT Student in an Organized Health Care Education/Training Program; ATTEND Internal Medicine

== ENCOUNTER 2020-08-16 20:37 | Inpatient (IN) ==
[2020-08-16 21:20] LABS: Basophils % 0.2 %; Eosinophils % 0.3 %; Hematocrit 32.2 % (35.3-44.9); Hemoglobin 9.9 g/dL (11.5-15.4); Immature Granulocytes % 0.3 % (0-4); Lymphocytes # 0.6 K/mcL (0.6-4.6); Lymphocytes % 9.6 %; Mean Corpuscular HGB Conc 30.7 g/dL (31.6-35.5); Mean Corpuscular Hemoglobin 26.5 pg (28.0-33.3); Mean Corpuscular Volume 86.3 fL (83.0-100.0); Mean Platelet Volume 10.6 fL (9.4-12.4); Monocytes # 0.4 K/mcL (0.0-1.3); Monocytes % 6.4 %; Neutrophils # 5.5 K/mcL (1.6-8.9); Platelet Count 161 K/mcL (140-400); Red Blood Count 3.73 M/mcL (3.82-4.97); Red Cell Distribution Width 15.5 % (11.5-14.5); Segmented Neutrophils % 83.2 %; White Blood Count 6.6 K/mcL (4.3-11.1)
[2020-08-16 21:25] LABS: INR 1.3; Prothrombin Time 15.2 Seconds (9.4-12.1)
[2020-08-16 21:27] LABS: Activated Partial Thrombo Time 22.4 Seconds (26.0-36.0)
[2020-08-16 21:42] LABS: Alanine Aminotransferase 20 Units/L (7-52); Albumin 3.3 g/dL (3.5-5.7); Albumin/Globulin Ratio 0.9 (1.1-2.2); Alkaline Phosphatase 99 Units/L (34-104); Aspartate Amino Transferase 28 Units/L (13-39); BUN/Creatinine Ratio 24 (6-26); Bilirubin,Direct 0.1 mg/dL (0.0-0.2); Bilirubin,Indirect 0.6 mg/dL (0.0-1.0); Bilirubin,Total 0.7 mg/dL (0.3-1.0); Blood Urea Nitrogen 25 mg/dL (8-23); C-Reactive Protein 137 mg/L (Less than 10); Calcium 8.7 mg/dL (8.6-10.3); Carbon Dioxide 24 mEq/L (23-29); Chloride 100 mEq/L (98-107); Globulin 3.6 g/dL (2.4-3.5); Glucose 169 mg/dL (70-105); Lactate Dehydrogenase 222 Units/L (140-271); Magnesium 1.5 mg/dL (1.6-2.6); Osmolality,Calculated 282 (280-300); Phosphorous 2.5 mg/dL (2.7-4.5); Potassium 4.7 mEq/L (3.5-5.1); Sodium 132 mEq/L (136-145); Total Protein 6.9 g/dL (6.4-8.9); Troponin I 0.03 ng/mL (< 0.04); eGFR For African Americans > 60 (> 60); eGFR For Non-African Americans 54 (> 60)
[2020-08-16] MEDS ORDERED: Ipratropium/Albuterol Neb 3 ML IH ONE (21:46)
[2020-08-16] MEDS ORDERED: Dexamethasone 4 MG/ML VIAL IVP ONE (21:46)
[2020-08-16] MEDS ORDERED: Azithromycin 500 MG in 0.9 % Sodium Chloride 250 ML IVPB ONE (21:46)
[2020-08-16 22:01] LABS: Ferritin 200 ng/mL (10-120)
[2020-08-16 22:02] LABS: Bacteria,Urine Few per hpf (None-Few); Bilirubin,Urine Negative (Negative); Blood,Urine Trace (Negative); Clarity,Urine Ex.Turbid (Clear); Color,Urine Yellow (Yellow); Glucose,Urine (UA) Normal (Normal); Ketones,Urine Negative (Negative); Leukocyte Esterase,Urine Large (Negative); Nitrite,Urine Positive (Negative); PH,Urine 8.5 pH Units (5.0-8.0); Protein,Urine 100 mg/dL (Neg-Trace); RBC,Urine 0-3 per hpf (0-3); Specific Gravity,Urine 1.022 (1.010-1.025); Squamous Epithelial Cell,Urine Few per hpf (None-Few); Urobilinogen,Urine Normal (Normal); WBC,Urine 0-3 per hpf (0-3)
[2020-08-16] MEDS ORDERED: Isovue-370 500 ML BOTTLE IVP ONE (22:04)
[2020-08-16] MEDS ORDERED: cefTRIAXone 1,000 MG in 0.9 % Sodium Chloride Mini Bag 100 ML IVPB ONE (22:57)
[2020-08-16] MEDS ORDERED: CefTRIAXone 1,000 MG VIAL ONE (23:46)
[2020-08-17] MEDS ORDERED: Naloxone 0.4 MG/ML INJ IVP PRN (01:08)
[2020-08-17] MEDS ORDERED: Ondansetron 4 MG/2 ML VIAL IVP PRN (01:08)
[2020-08-17] MEDS ORDERED: Benzonatate 100 MG CAPSULE PO PRN (01:13)
[2020-08-17] MEDS ORDERED: *HR* Dextrose 50 % in Water (Vial) 50 ML VIAL IVP PRN (01:15)
[2020-08-17] MEDS ORDERED: Dextrose Gel 15 GM/37.5 ML TUBE PO PRN ×2 (01:15)
[2020-08-17] MEDS ORDERED: 0.9 % Sodium Chloride 1,000 ML IVC SCH (01:15)
[2020-08-17] MEDS ORDERED: D5% in Water 1,000 ML IVC PRN (01:15)
[2020-08-17] MEDS: Nystatin POWDER 30 GM BOTTLE TP SCH ×2 (03:48→21:19)
[2020-08-17] MEDS: Doxycycline 100 MG in 0.9 % Sodium Chloride Mini Bag 100 ML IVPB SCH ×2 (04:53→19:36)
[2020-08-17] MEDS: *HR* Enoxaparin 40 MG/0.4 ML SYRINGE SQ SCH (04:55)
[2020-08-17 06:41] LABS: Basophils % 0.2 %; Hematocrit 34.1 % (35.3-44.9); Hemoglobin 10.3 g/dL (11.5-15.4); Immature Granulocytes % 0.2 % (0-4); Lymphocytes # 0.7 K/mcL (0.6-4.6); Lymphocytes % 13.4 %; Mean Corpuscular HGB Conc 30.2 g/dL (31.6-35.5); Mean Corpuscular Hemoglobin 26.5 pg (28.0-33.3); Mean Corpuscular Volume 87.9 fL (83.0-100.0); Mean Platelet Volume 10.9 fL (9.4-12.4); Monocytes # 0.2 K/mcL (0.0-1.3); Monocytes % 3.7 %; Platelet Count 160 K/mcL (140-400); Red Blood Count 3.88 M/mcL (3.82-4.97); Red Cell Distribution Width 15.3 % (11.5-14.5); Segmented Neutrophils % 82.5 %; White Blood Count 4.9 K/mcL (4.3-11.1)
[2020-08-17 07:04] LABS: BUN/Creatinine Ratio 30 (6-26); Blood Urea Nitrogen 27 mg/dL (8-23); Calcium 8.8 mg/dL (8.6-10.3); Carbon Dioxide 23 mEq/L (23-29); Chloride 100 mEq/L (98-107); Glucose 260 mg/dL (70-105); Magnesium 2.5 mg/dL (1.6-2.6); Osmolality,Calculated 288 (280-300); Sodium 132 mEq/L (136-145); eGFR For African Americans > 60 (> 60); eGFR For Non-African Americans > 60 (> 60)
[2020-08-17] MEDS ORDERED: cefTRIAXone 2,000 MG in Water for inj. (sterile) 20 ML IVP SCH (08:00)
[2020-08-17] MEDS: Insulin LISPRO 300 UNITS/3 ML VIAL SUBQ SCH ×4 (08:36→21:16)
[2020-08-17] MEDS: Insulin DETEMIR 100 UNIT/ML X5UNITS SUBQ SCH ×2 (08:36→21:18)
[2020-08-17] MEDS: Furosemide 40 MG/4 ML VIAL IVP SCH ×2 (10:59→19:37)
[2020-08-17] MEDS ORDERED: *HR* Metoprolol 5 MG/5 ML VIAL IVP ONE (13:38)
[2020-08-17] MEDS: Metoprolol XL (24 HR) Succ 50 MG TAB.ER.24H PO SCH (13:57)
[2020-08-17] MEDS ORDERED: *HR* LORazepam 0.5 MG TABLET PO ONE (15:53)
[2020-08-17] MEDS ORDERED: Haloperidol Lactate 5 MG/ML VIAL IVP ONE ×2 (16:38→17:19)
[2020-08-17] MEDS ORDERED: Haloperidol Lactate 5 MG/ML VIAL IVP PRN (16:43)
[2020-08-17] MEDS ORDERED: Dexmedetomidine HCl 400 MCG/100 ML MLS IVC SCH (16:45)
[2020-08-17] MEDS ORDERED: Dexmedetomidine HCl 400 MCG/100 ML MLS IVC ONE (17:07)
[2020-08-17] MEDS ORDERED: Haloperidol Lactate 5 MG/ML VIAL ONE (17:14)
[2020-08-17] MEDS ORDERED: *HR* LORazepam 2 MG/ML VIAL IVP ONE ×2 (17:20→17:31)
[2020-08-17] MEDS ORDERED: *HR* Etomidate 20 MG/10 ML AMPUL IVP ONE (17:31)
[2020-08-17] MEDS ORDERED: *HR* Rocuronium Bromide 100 MG/10 ML VIAL IVP ONE (17:31)
[2020-08-17] MEDS ORDERED: *HR* FentaNYL (PF) 1,000 MCG/20 ML VIAL ONE (17:43)
[2020-08-17] MEDS: FentaNYL (PF) 1,000 MCG/100 ML IV.SOLN IVC SCH (18:20)
[2020-08-17] MEDS ORDERED: 0.9 % Sodium Chloride 250 ML ONE (18:40)
[2020-08-17] MEDS ORDERED: *HR* Norepinephrine 4 MG/4 ML VIAL IVC ONE (18:40)
[2020-08-17 18:41] LABS: ABG Base Excess 0 mEq/L (-2 to 3); ABG HCO3 29 mEq/L (21-27); ABG Oxygen Saturation 90 % (95-98); ABG PCO2 70 mmHg (35-45); ABG PH 7.23 pH Units (7.32-7.45); ABG PO2 71 mmHg (85-104); ABG TCO2 32 mEq/L (20-26); Blood Gas Modality ASSIST CONTROL; Blood Gas VT 500 cc
[2020-08-17] MEDS: Norepinephrine 4 MG/254 ML IV.SOLN IVC SCH (18:44)
[2020-08-17] MEDS: Cefepime HCl 2,000 MG in Water for inj. (sterile) 20 ML IVP SCH ×3 (19:26→21:31)
[2020-08-17] MEDS: Pantoprazole 40 MG VIAL IVP SCH (19:36)
[2020-08-17] MEDS: Vancomycin 1,750 MG/517.5 ML IV.SOLN IVPB SCH (19:37)
[2020-08-17] MEDS: Cisatracurium 200 MG in 0.9 % Sodium Chloride 180 ML IVC SCH ×2 (19:37→21:33)
[2020-08-17] MEDS: Dexamethasone 4 MG/ML VIAL IVP SCH (19:38)
[2020-08-17] MEDS ORDERED: cefTRIAXone 1,000 MG in Water for inj. (sterile) 10 ML IVP SCH (21:00)
[2020-08-17] MEDS ORDERED: Azithromycin 500 MG in 0.9 % Sodium Chloride 250 ML IVPB SCH (21:00)
[2020-08-18 01:08] LABS: Hematocrit 35.9 % (35.3-44.9); Mean Corpuscular HGB Conc 30.6 g/dL (31.6-35.5); Mean Corpuscular Hemoglobin 26.5 pg (28.0-33.3); Mean Corpuscular Volume 86.5 fL (83.0-100.0); Mean Platelet Volume 11.1 fL (9.4-12.4); Platelet Count 185 K/mcL (140-400); Red Blood Count 4.15 M/mcL (3.82-4.97); Red Cell Distribution Width 15.2 % (11.5-14.5)
[2020-08-18 01:11] LABS: White Blood Count 10.4 K/mcL (4.3-11.1)
[2020-08-18 01:29] LABS: BUN/Creatinine Ratio 32 (6-26); Blood Urea Nitrogen 35 mg/dL (8-23); Calcium 8.7 mg/dL (8.6-10.3); Carbon Dioxide 25 mEq/L (23-29); Chloride 96 mEq/L (98-107); Glucose 318 mg/dL (70-105); Osmolality,Calculated 292 (280-300); Potassium 4.9 mEq/L (3.5-5.1); Sodium 131 mEq/L (136-145); eGFR For African Americans > 60 (> 60); eGFR For Non-African Americans 51 (> 60)
[2020-08-18] MEDS: FentaNYL (PF) 1,000 MCG/100 ML IV.SOLN IVC SCH ×3 (01:33→23:05)
[2020-08-18 05:13] LABS: ABG Base Excess 0 mEq/L (-2 to 3); ABG HCO3 26 mEq/L (21-27); ABG Oxygen Saturation 95 % (95-98); ABG PCO2 49 mmHg (35-45); ABG PH 7.34 pH Units (7.32-7.45); ABG PO2 80 mmHg (85-104); ABG TCO2 27 mEq/L (20-26); Blood Gas VT 500 cc
[2020-08-18] MEDS: Doxycycline 100 MG in 0.9 % Sodium Chloride Mini Bag 100 ML IVPB SCH ×2 (05:59→18:15)
[2020-08-18] MEDS: Cefepime HCl 2,000 MG in Water for inj. (sterile) 20 ML IVP SCH ×3 (05:59→23:10)
[2020-08-18] MEDS: *HR* Enoxaparin 40 MG/0.4 ML SYRINGE SQ SCH (05:59)
[2020-08-18] MEDS: Vancomycin 1,750 MG/517.5 ML IV.SOLN IVPB SCH ×2 (07:33→18:30)
[2020-08-18] MEDS: Pantoprazole 40 MG VIAL IVP SCH (08:46)
[2020-08-18] MEDS: Insulin LISPRO 300 UNITS/3 ML VIAL SUBQ SCH ×3 (08:47→17:30)
[2020-08-18] MEDS: Dexamethasone 4 MG/ML VIAL IVP SCH (08:47)
[2020-08-18] MEDS: Insulin DETEMIR 100 UNIT/ML X5UNITS SUBQ SCH (08:47)
[2020-08-18] MEDS: Metoprolol XL (24 HR) Succ 50 MG TAB.ER.24H PO SCH (08:47)
[2020-08-18] MEDS: Furosemide 40 MG/4 ML VIAL IVP SCH ×2 (08:47→23:08)
[2020-08-18] MEDS: Nystatin POWDER 30 GM BOTTLE TP SCH ×2 (08:49→23:11)
[2020-08-18] MEDS: Norepinephrine 4 MG/254 ML IV.SOLN IVC SCH (08:52)
[2020-08-18] MEDS ORDERED: Remdesivir 200 MG in 0.9 % Sodium Chloride 100 ML IVPB ONE (15:00)
[2020-08-18] MEDS: Cisatracurium 200 MG in 0.9 % Sodium Chloride 180 ML IVC SCH (18:20)
[2020-08-19] MEDS: Insulin DETEMIR 100 UNIT/ML X5UNITS SUBQ SCH ×3 (01:01→19:41)
[2020-08-19] MEDS: Insulin LISPRO 300 UNITS/3 ML VIAL SUBQ SCH ×6 (01:03→23:50)
[2020-08-19 04:39] LABS: ABG Base Excess 1 mEq/L (-2 to 3); ABG HCO3 28 mEq/L (21-27); ABG Oxygen Saturation 90 % (95-98); ABG PCO2 53 mmHg (35-45); ABG PH 7.33 pH Units (7.32-7.45); ABG PO2 64 mmHg (85-104); ABG TCO2 30 mEq/L (20-26); Blood Gas Modality ASSIST CONTROL; Blood Gas VT 460 cc
[2020-08-19] MEDS: Doxycycline 100 MG in 0.9 % Sodium Chloride Mini Bag 100 ML IVPB SCH ×2 (06:55→17:56)
[2020-08-19] MEDS: Cefepime HCl 2,000 MG in Water for inj. (sterile) 20 ML IVP SCH ×3 (07:01→19:41)
[2020-08-19] MEDS: Pantoprazole 40 MG VIAL IVP SCH (07:01)
[2020-08-19] MEDS: *HR* Enoxaparin 40 MG/0.4 ML SYRINGE SQ SCH (07:02)
[2020-08-19] MEDS: Furosemide 40 MG/4 ML VIAL IVP SCH ×2 (08:44→19:41)
[2020-08-19] MEDS: Nystatin POWDER 30 GM BOTTLE TP SCH ×2 (08:44→20:18)
[2020-08-19] MEDS ORDERED: Lidocaine -MPF 1% 5 ML AMPUL INFILT ONE (08:44)
[2020-08-19] MEDS: Dexamethasone 4 MG/ML VIAL IVP SCH (08:44)
[2020-08-19 09:00] LABS: Basophils % 0.2 %; Immature Granulocytes % 0.4 % (0-4); Lymphocytes # 1.1 K/mcL (0.6-4.6); Lymphocytes % 10.9 %; Mean Corpuscular HGB Conc 30.6 g/dL (31.6-35.5); Mean Corpuscular Hemoglobin 27.2 pg (28.0-33.3); Mean Corpuscular Volume 88.9 fL (83.0-100.0); Mean Platelet Volume 10.7 fL (9.4-12.4); Monocytes # 0.5 K/mcL (0.0-1.3); Neutrophils # 8.3 K/mcL (1.6-8.9); Platelet Count 187 K/mcL (140-400); Red Blood Count 4.05 M/mcL (3.82-4.97); Red Cell Distribution Width 15.2 % (11.5-14.5); Segmented Neutrophils % 83.5 %
[2020-08-19 09:22] LABS: BUN/Creatinine Ratio 46 (6-26); Blood Urea Nitrogen 48 mg/dL (8-23); Calcium 8.6 mg/dL (8.6-10.3); Carbon Dioxide 29 mEq/L (23-29); Chloride 100 mEq/L (98-107); Glucose 235 mg/dL (70-105); Osmolality,Calculated 300 (280-300); Potassium 4.6 mEq/L (3.5-5.1); Sodium 135 mEq/L (136-145); Vancomycin,Trough 17 mcg/mL (5-10); eGFR For African Americans > 60 (> 60); eGFR For Non-African Americans 54 (> 60)
[2020-08-19] MEDS: FentaNYL (PF) 1,000 MCG/100 ML IV.SOLN IVC SCH ×3 (10:01→22:23)
[2020-08-19] MEDS: Cisatracurium 200 MG in 0.9 % Sodium Chloride 180 ML IVC SCH ×2 (10:34→21:56)
[2020-08-19] MEDS ORDERED: Bisacodyl 10 MG RECTAL SUPPOSITORY RC PRN (11:27)
[2020-08-19] MEDS: Midazolam HCl 50 MG/100 ML IV.SOLN IVC SCH ×2 (11:55→23:49)
[2020-08-19] MEDS ORDERED: Dexamethasone 4 MG/ML VIAL IVP ONE (12:00)
[2020-08-19] MEDS: Dexmedetomidine HCl 400 MCG/100 ML MLS IVC SCH ×2 (13:51→23:50)
[2020-08-19] MEDS: Vancomycin 1,250 MG/262.5 ML IV.SOLN IVPB SCH ×2 (14:02→23:52)
[2020-08-19] MEDS: Norepinephrine 4 MG/254 ML IV.SOLN IVC SCH (14:35)
[2020-08-19] MEDS: Remdesivir 100 MG in 0.9 % Sodium Chloride 100 ML IVPB SCH (15:41)
[2020-08-19 15:59] LABS: Albumin 3.3 g/dL (3.5-5.7); Albumin/Globulin Ratio 0.8 (1.1-2.2); Bilirubin,Direct 0.1 mg/dL (0.0-0.2); Bilirubin,Indirect 0.3 mg/dL (0.0-1.0); Bilirubin,Total 0.4 mg/dL (0.3-1.0); Globulin 3.9 g/dL (2.4-3.5); Total Protein 7.2 g/dL (6.4-8.9)
[2020-08-19] MEDS ORDERED: Calcium Gluconate 1gm/50mL 1 GM/50 ML BAG IVPB PRN (17:23)
[2020-08-19 18:13] LABS: VBG Ionized Calcium 1.11 mmol/L (1.15-1.35)
[2020-08-19 18:37] LABS: Phosphorous 3.9 mg/dL (2.7-4.5)
[2020-08-19 18:59] LABS: BUN/Creatinine Ratio 49 (6-26); Blood Urea Nitrogen 48 mg/dL (8-23); Calcium 8.3 mg/dL (8.6-10.3); Carbon Dioxide 27 mEq/L (23-29); Chloride 102 mEq/L (98-107); Glucose 218 mg/dL (70-105); Osmolality,Calculated 299 (280-300); Sodium 135 mEq/L (136-145); eGFR For African Americans > 60 (> 60); eGFR For Non-African Americans 58 (> 60)
[2020-08-19] MEDS: Docusate Oral Soln 100 MG/10 ML UDC GTUBE SCH (19:42)
[2020-08-20] MEDS ORDERED: *HR* Metoprolol 5 MG/5 ML VIAL IVP PRN (00:48)
[2020-08-20] MEDS: *HR* Metoprolol 5 MG/5 ML VIAL IVP SCH ×3 (01:14→10:09)
[2020-08-20] MEDS: Insulin LISPRO 300 UNITS/3 ML VIAL SUBQ SCH ×5 (04:01→20:54)
[2020-08-20] MEDS: Dexmedetomidine HCl 400 MCG/100 ML MLS IVC SCH ×3 (04:05→23:52)
[2020-08-20 04:09] LABS: Basophils % 0.1 %; Hemoglobin 11.1 g/dL (11.5-15.4); Immature Granulocytes % 0.7 % (0-4); Lymphocytes # 0.7 K/mcL (0.6-4.6); Mean Corpuscular Hemoglobin 26.4 pg (28.0-33.3); Mean Corpuscular Volume 88.1 fL (83.0-100.0); Mean Platelet Volume 10.9 fL (9.4-12.4); Monocytes # 0.4 K/mcL (0.0-1.3); Monocytes % 5.5 %; Neutrophils # 6.8 K/mcL (1.6-8.9); Platelet Count 172 K/mcL (140-400); Red Cell Distribution Width 14.6 % (11.5-14.5); Segmented Neutrophils % 84.7 %; White Blood Count 8.1 K/mcL (4.3-11.1)
[2020-08-20 04:16] LABS: VBG Ionized Calcium 1.16 mmol/L (1.15-1.35)
[2020-08-20 04:16] LABS: ABG Base Excess 2 mEq/L (-2 to 3); ABG HCO3 31 mEq/L (21-27); ABG Oxygen Saturation 90 % (95-98); ABG PCO2 71 mmHg (35-45); ABG PH 7.25 pH Units (7.32-7.45); ABG PO2 70 mmHg (85-104); ABG TCO2 33 mEq/L (20-26); Blood Gas Modality ASSIST CONTROL; Blood Gas VT 460 cc
[2020-08-20 04:29] LABS: Alanine Aminotransferase 34 Units/L (7-52); Albumin/Globulin Ratio 0.7 (1.1-2.2); Alkaline Phosphatase 83 Units/L (34-104); Aspartate Amino Transferase 74 Units/L (13-39); BUN/Creatinine Ratio 51 (6-26); Bilirubin,Total 0.4 mg/dL (0.3-1.0); Blood Urea Nitrogen 44 mg/dL (8-23); Calcium 8.5 mg/dL (8.6-10.3); Carbon Dioxide 27 mEq/L (23-29); Chloride 102 mEq/L (98-107); Globulin 4.1 g/dL (2.4-3.5); Glucose 281 mg/dL (70-105); Osmolality,Calculated 303 (280-300); Phosphorous 3.6 mg/dL (2.7-4.5); Potassium 4.8 mEq/L (3.5-5.1); Sodium 136 mEq/L (136-145); Total Protein 7.1 g/dL (6.4-8.9); eGFR For African Americans > 60 (> 60); eGFR For Non-African Americans > 60 (> 60)
[2020-08-20] MEDS: FentaNYL (PF) 1,000 MCG/100 ML IV.SOLN IVC SCH (05:06)
[2020-08-20] MEDS: Midazolam HCl 50 MG/100 ML IV.SOLN IVC SCH ×3 (05:06→18:44)
[2020-08-20] MEDS: *HR* Enoxaparin 40 MG/0.4 ML SYRINGE SQ SCH (05:07)
[2020-08-20] MEDS: Doxycycline 100 MG in 0.9 % Sodium Chloride Mini Bag 100 ML IVPB SCH ×2 (05:07→17:00)
[2020-08-20] MEDS: Cefepime HCl 2,000 MG in Water for inj. (sterile) 20 ML IVP SCH ×3 (05:10→21:00)
[2020-08-20] MEDS: Cisatracurium 200 MG in 0.9 % Sodium Chloride 180 ML IVC SCH ×2 (08:12→20:09)
[2020-08-20] MEDS: Insulin DETEMIR 100 UNIT/ML X5UNITS SUBQ SCH ×2 (08:15→21:13)
[2020-08-20] MEDS: Pantoprazole 40 MG VIAL IVP SCH (08:18)
[2020-08-20] MEDS: Docusate Oral Soln 100 MG/10 ML UDC GTUBE SCH ×2 (08:18→21:00)
[2020-08-20] MEDS: Nystatin POWDER 30 GM BOTTLE TP SCH ×2 (08:19→21:02)
[2020-08-20] MEDS: Furosemide 40 MG/4 ML VIAL IVP SCH ×2 (08:19→21:00)
[2020-08-20] MEDS: Dexamethasone Sodium Phos/PF 10 MG/ML VIAL IVP SCH (08:19)
[2020-08-20] MEDS: FentaNYL (PF) 2,500 MCG/50 ML IV.SOLN IVC SCH ×2 (10:10→23:02)
[2020-08-20] MEDS: Ipratropium 1 PUFF INHALER IH SCH ×4 (11:00→23:48)
[2020-08-20] MEDS: Vancomycin 1,250 MG/262.5 ML IV.SOLN IVPB SCH (11:21)
[2020-08-20] MEDS: Remdesivir 100 MG in 0.9 % Sodium Chloride 100 ML IVPB SCH (14:17)
[2020-08-20] MEDS: Norepinephrine 4 MG/254 ML IV.SOLN IVC SCH (15:10)
[2020-08-20] MEDS: Chlorhexidine Rinse 15 ML MOUTHWASH MM SCH (21:53)
[2020-08-20 22:10] LABS: ABG Base Excess 3 mEq/L (-2 to 3); ABG HCO3 32 mEq/L (21-27); ABG Oxygen Saturation 88 % (95-98); ABG PCO2 73 mmHg (35-45); ABG PH 7.25 pH Units (7.32-7.45); ABG PO2 66 mmHg (85-104); ABG TCO2 35 mEq/L (20-26); Blood Gas Modality ASSIST CONTROL; Blood Gas VT 400 cc
[2020-08-20] MEDS: Artificial Tears SOLN 15 ML BOTTLE BOTH EYES SCH (23:29)
[2020-08-20 23:47] LABS: BUN/Creatinine Ratio 57 (6-26); Blood Urea Nitrogen 50 mg/dL (8-23); Calcium 8.7 mg/dL (8.6-10.3); Carbon Dioxide 29 mEq/L (23-29); Chloride 104 mEq/L (98-107); Glucose 329 mg/dL (70-105); Osmolality,Calculated 312 (280-300); Potassium 5.3 mEq/L (3.5-5.1); Sodium 138 mEq/L (136-145); eGFR For African Americans > 60 (> 60); eGFR For Non-African Americans > 60 (> 60)
[2020-08-21] MEDS: Insulin LISPRO 300 UNITS/3 ML VIAL SUBQ SCH ×4 (00:14→12:29)
[2020-08-21] MEDS: Midazolam HCl 50 MG/100 ML IV.SOLN IVC SCH ×2 (02:06→08:41)
[2020-08-21] MEDS: Artificial Tears SOLN 15 ML BOTTLE BOTH EYES SCH ×4 (03:24→16:40)
[2020-08-21] MEDS: Ipratropium 1 PUFF INHALER IH SCH ×3 (03:24→11:16)
[2020-08-21] MEDS: Dexmedetomidine HCl 400 MCG/100 ML MLS IVC SCH ×2 (04:07→11:00)
[2020-08-21] MEDS: Cefepime HCl 2,000 MG in Water for inj. (sterile) 20 ML IVP SCH ×2 (04:50→12:28)
[2020-08-21] MEDS: Doxycycline 100 MG in 0.9 % Sodium Chloride Mini Bag 100 ML IVPB SCH (04:52)
[2020-08-21 05:19] LABS: Basophils % 0.1 %; Hematocrit 36.9 % (35.3-44.9); Hemoglobin 11.1 g/dL (11.5-15.4); Immature Granulocytes % 0.8 % (0-4); Lymphocytes # 0.7 K/mcL (0.6-4.6); Lymphocytes % 9.1 %; Mean Corpuscular HGB Conc 30.1 g/dL (31.6-35.5); Mean Corpuscular Hemoglobin 26.9 pg (28.0-33.3); Mean Corpuscular Volume 89.6 fL (83.0-100.0); Mean Platelet Volume 10.8 fL (9.4-12.4); Monocytes # 0.6 K/mcL (0.0-1.3); Neutrophils # 5.8 K/mcL (1.6-8.9); Platelet Count 197 K/mcL (140-400); Red Blood Count 4.12 M/mcL (3.82-4.97); Red Cell Distribution Width 14.5 % (11.5-14.5); White Blood Count 7.1 K/mcL (4.3-11.1)
[2020-08-21 05:21] LABS: ABG Base Excess 3 mEq/L (-2 to 3); ABG HCO3 32 mEq/L (21-27); ABG Oxygen Saturation 87 % (95-98); ABG PCO2 79 mmHg (35-45); ABG PH 7.22 pH Units (7.32-7.45); ABG PO2 66 mmHg (85-104); ABG TCO2 35 mEq/L (20-26); Blood Gas Modality VC+; Blood Gas VT 400 cc
[2020-08-21 05:35] LABS: VBG Ionized Calcium 1.19 mmol/L (1.15-1.35)
[2020-08-21 05:37] LABS: Alanine Aminotransferase 32 Units/L (7-52); Albumin 2.8 g/dL (3.5-5.7); Albumin/Globulin Ratio 0.7 (1.1-2.2); Alkaline Phosphatase 79 Units/L (34-104); Aspartate Amino Transferase 36 Units/L (13-39); BUN/Creatinine Ratio 63 (6-26); Bilirubin,Total 0.4 mg/dL (0.3-1.0); Blood Urea Nitrogen 52 mg/dL (8-23); Calcium 8.7 mg/dL (8.6-10.3); Carbon Dioxide 29 mEq/L (23-29); Chloride 103 mEq/L (98-107); Glucose 380 mg/dL (70-105); Magnesium 2.1 mg/dL (1.6-2.6); Osmolality,Calculated 314 (280-300); Phosphorous 3.5 mg/dL (2.7-4.5); Potassium 5.1 mEq/L (3.5-5.1); Sodium 137 mEq/L (136-145); Total Protein 6.8 g/dL (6.4-8.9); eGFR For African Americans > 60 (> 60); eGFR For Non-African Americans > 60 (> 60)
[2020-08-21 05:38] LABS: BUN/Creatinine Ratio 63 (6-26); Blood Urea Nitrogen 52 mg/dL (8-23); Calcium 8.7 mg/dL (8.6-10.3); Carbon Dioxide 29 mEq/L (23-29); Chloride 103 mEq/L (98-107); Glucose 380 mg/dL (70-105); Osmolality,Calculated 314 (280-300); Potassium 5.1 mEq/L (3.5-5.1); Sodium 137 mEq/L (136-145); eGFR For African Americans > 60 (> 60); eGFR For Non-African Americans > 60 (> 60)
[2020-08-21] MEDS: *HR* Enoxaparin 40 MG/0.4 ML SYRINGE SQ SCH (06:04)
[2020-08-21] MEDS: Docusate Oral Soln 100 MG/10 ML UDC GTUBE SCH (07:57)
[2020-08-21] MEDS: Chlorhexidine Rinse 15 ML MOUTHWASH MM SCH (07:57)
[2020-08-21] MEDS: Pantoprazole 40 MG VIAL IVP SCH (07:57)
[2020-08-21] MEDS: Furosemide 40 MG/4 ML VIAL IVP SCH (07:57)
[2020-08-21] MEDS: Dexamethasone Sodium Phos/PF 10 MG/ML VIAL IVP SCH (07:59)
[2020-08-21] MEDS: Nystatin POWDER 30 GM BOTTLE TP SCH (08:00)
[2020-08-21] MEDS: Cisatracurium 200 MG in 0.9 % Sodium Chloride 180 ML IVC SCH (08:40)
[2020-08-21] MEDS: Insulin DETEMIR 100 UNIT/ML X5UNITS SUBQ SCH (08:40)
[2020-08-21] MEDS: FentaNYL (PF) 2,500 MCG/50 ML IV.SOLN IVC SCH (12:26)
[2020-08-21] MEDS ORDERED: Insulin DETEMIR 100 UNIT/ML X5UNITS SUBQ ONE (13:00)
[2020-08-21] MEDS ORDERED: *HR* LORazepam 2 MG/ML VIAL IVP PRN (14:35)
[2020-08-21] MEDS ORDERED: Glycopyrrolate 0.2 MG/ML VIAL IVP ONE (14:37)
[2020-08-21 15:10] VITALS: BP 121/79
[2020-08-21] MEDS ORDERED: Insulin DETEMIR 100 UNIT/ML X5UNITS SUBQ SCH (21:00)
== END 2020-08-21 19:26 | disposition expired | DRG 720 ==
LOC: EMEROOARM 20:37 → CDU 20:37 → 2NENU 08-17 18:20
PROVIDERS: ADMIT Student in an Organized Health Care Education/Training Program; ATTEND Student in an Organized Health Care Education/Training Program